=== PATIENT | male | born 1945 | race Caucasian/White ===

== ENCOUNTER 2017-02-11 16:21 | Inpatient (IN) | payer MEDICARE, OTHER ==
--- NOTE | ~2017-02-11 | HP ---
Unit #: [id number] #: [id number] Patient: GINA BALDERAS [id number] [address] [address] [id number] I MR#: [id number] NAME: GINA BALDERAS ROOM: 330 Age: Sex: M Admission Date: 02/11/2017 : 1945 Attending Physician: Cookie Henning M.D. Primary Care Physician: Joel Herman Jr., M.D. HISTORY AND PHYSICAL CHIEF COMPLAINT Low sodium. HISTORY OF PRESENT ILLNESS Mr. Balderas is a 71-year-old male with a history of congestive heart failure, coronary artery disease and chronic alcohol abuse who presents for above. Patient tells me he has been having "diarrhea for three weeks. He is having one to two loose bowel movements daily that appear green in color. He denies any fever or chills. He denies any sick contacts. He denies any associated abdominal pain. He has not been eating and drinking well secondary to the diarrhea. Three or four days ago he developed the abrupt onset of nausea. He has been having episodes of emesis in the morning, every morning that are nonbloody. His home health nurse came to see him and did some blood work. He was told his sodium was low and to go to the ER. The patient denies any melena or hematochezia. Sodium level was reportedly 124 per records I have available. INR was also elevated at 5.3. Patient is being admitted for further workup. PAST MEDICAL HISTORY 1. Atrial fibrillation. I believe permanent rate controlled and on anticoagulation. I will note; however, notes from the home health nurse indicate perhaps he is not taking his diltiazem and Coreg. ADDENDUM PAST MEDICAL HISTORY 1. Coronary artery disease, status post stenting in [facility] in 2009. 2. Atrial fibrillation, permanent rate controlled maintained on anticoagulation. 3. Diabetes mellitus type 2, noninsulin requiring. 4. Diabetic peripheral neuropathy. 5. Tobaccoism. 6. Chronic alcohol abuse. 7. Gout. 8. Chronic systolic congestive heart failure with ejection fraction of 40% to 45% per echocardiogram in 01/2016. 9. Osteoporosis. 10. Hypertension. PAST SURGICAL HISTORY Includes partial right second toe amputation, left hip replacement and cardiac stent placement in 2009. Unit #: [id number] #: [id number] Patient: GINA BALDERAS ALLERGIES Tramadol, which causes itching. HOME MEDICATIONS To the best of my knowledge include Seroquel 300 mg at bedtime; Allopurinol 100 mg daily; lisinopril/HCTZ 20/12.5 one twice daily; metformin 1,000 mg b.i.d.; metoprolol tartrate 25 mg b.i.d.; Lasix 40 mg daily; omeprazole 20 mg daily. Interestingly that I will note Coumadin is not listed as a home med. FAMILY HISTORY Significant for coronary artery disease in patient's mother and her family. SOCIAL HISTORY The patient was just discharged from rehab about a month ago after falling on his left hip. He was treated at [place]. He reportedly had AFib with RVR at that time. No new hip fracture. He is now residing with his fi-srndajnp-lg-law. He continues to drink two 32 ounce beers daily. Continues to smoke about 1/2 pack of cigarettes per day. He smoked since he was a teenage, making for at least a 50 pack year history of smoking most likely. REVIEW OF SYSTEMS Denies any recent weight change. Has had some falls at home but has not had any subsequent injury. He denies any fever or chills. He denies any shortness of breath. He denies any chest pain or palpitations. He denies any sore throat. He denies any abdominal pain, constipation, melena, hematochezia. Denies any postprandial pain. He denies any hematuria and dysuria. He does endorse some urinary hesitancy. He does have chronic thickening of the lower extremities. He does feel significantly weak but denies any dizziness. No suicidal or homicidal ideation. Otherwise ten point review of systems is as per HPI. PHYSICAL EXAMINATION VITAL SIGNS: Temperature 98.3, blood pressure 150/83, pulse rate 88, respiratory rate 22, oxygen saturation is 94% on room air. GENERAL: The patient is awake, alert, and oriented x3 but is only a vague historian, easily distracted. HEENT: Pupils equal, round, reactive to light bilaterally. Anicteric sclera. No conjunctival pallor. Oropharynx - there is not any dry mucous membranes, erythema or exudate. NECK: Supple. No lymphadenopathy and no thyromegaly. No JVD. HEART: Irregularly irregular and occasionally tachycardic without murmur, rub or gallop. LUNGS: Significantly diminished bilaterally without wheezes, rhonchi or crackles. ABDOMEN: Soft, nontender, nondistended. Positive bowel sounds. No appreciable hepatosplenomegaly. EXTREMITIES: No cyanosis or clubbing and trace to 1+ lower extremity edema. Pedal pulse is 2/4. SKIN: Warm. It is moist. There is erythema and significant thickening desquamation of the lower extremities secondary to poor hygiene. MUSCULOSKELETAL: No significant joint erythema noted; however, there is significant formation of hammertoes on the feet bilaterally. PSYCHIATRIC: Alert and oriented x3. No suicidal or homicidal ideations. Unit #: [id number] #: [id number] Patient: GINA BALDERAS DIAGNOSTIC STUDIES LABORATORY STUDIES: Blood work done in the emergency department reveals a white blood cell count of 7.4, hemoglobin 14.1, platelet count of 254,000. Sodium is 125, potassium 4.1, chloride 90, bicarb 26, BUN 9, creatinine 0.8, glucose 79. Alcohol level is mildly elevated at 17. INR is found to be elevated at 6.4. CARDIOLOGY STUDIES: EKG is currently pending. ASSESSMENT 1. Hyponatremia likely hypovolemic in origin. 2. Nausea and vomiting, question primary versus secondary to #1. 3. Atrial fibrillation, chronic with variable rate control. 4. Supratherapeutic INR. 5. Loose stool with questionable infection. 6. Chronic alcohol abuse. 7. Chronic systolic congestive heart failure with ejection fraction of 40% per echocardiogram in 01/2016. 8. Coronary artery disease, status post stenting. 9. Hypertension. 10. Gout. 11. History of cocaine abuse. 12. Physical deconditioning. PLAN 1. Will admit patient to inpatient status. 2. Will continue him on normal saline at 75 mL an hour. I am going to hold his Lasix and check sodium level in the morning. I will also check a TSH for completeness and I will also discontinue his HCTZ. If sodium is not improving will do further workup for SIADH and perform chest x-ray. 3. Zofran for nausea and vomiting for now. 4. Continue metoprolol for rate control of AFib. Will hold Coumadin for now and recheck INR in the morning. Will initiate further medications for rate control if necessary. 5. Add CIWA protocol with Ativan only given high risk for alcohol withdrawal. 6. Continue other home medications for CHF, coronary artery disease, hypertension, and gout. As noted above, I will discontinue HCTZ. 7. I will check a urine drug screen given history of cocaine abuse. 8. PPI therapy. 9. PT and OT to eval and treat. 10. No need for DVT prophylaxis given supratherapeutic Coumadin. JOB #: [id number] Dictated by Cookie Henning M.D. LOKESH/felix TD: 02/12/2017 05:01 JOB #: [id number] Unit #: [id number] #: [id number] Patient: GINA BALDERAS HISTORY AND PHYSICAL Page 1 of 1 X Cookie Henning MD X HISTORY AND PHYSICAL
--- NOTE | ~2017-02-11 | EKG ---
PATIENT: GINA LOERA UNIT #: [id number] Ventricular Rate: 114 BPM Atrial Rate: 115 BPM QRS Duration: 76 ms Q-T Interval: 338 ms QTC Calculation(Bezet): 465 ms Calculated R [place]: -15 degrees Calculated T [place]: 65 degrees Diagnosis Line: Atrial fibrillation with rapid ventricular Diagnosis Line: response with premature ventricular or aberrantly Diagnosis Line: conducted complexes Diagnosis Line: Low voltage QRS Diagnosis Line: Nonspecific ST and T wave abnormality , probably Diagnosis Line: digitalis effect Diagnosis Line: Abnormal ECG Diagnosis Line: When compared with ECG of 12-JAN-2016 06:49, Diagnosis Line: Atrial fibrillation has replaced Sinus rhythm Diagnosis Line: Vent. rate has increased BY 48 BPM Diagnosis Line: Nonspecific T wave abnormality no longer evident Diagnosis Line: in Inferior leads Diagnosis Line: Confirmed by BRIAN GREGORIO MD ([id number]) on 02/12/2017 Diagnosis Line: 6:42:56 PM INTERPRETING MD: JG SHERWOOD
--- NOTE | ~2017-02-11 | DS ---
Unit #: [id number] #: [id number] Patient: GINA BALDERAS [id number] [address] [address] [id number] I MR#: [id number] NAME: GINA BALDERAS ROOM: 229 Age: 71 Sex: M Admission Date: 02/11/2017 : 1945 Discharge Date: 02/13/2017 Attending Physician: Cookie Henning M.D. Primary Care Physician: Joel Herman Jr., M.D. DISCHARGE SUMMARY PRINCIPAL DIAGNOSES 1. Hyponatremia and combination of hypovolemia with poor (1) intake. 2. Nausea and vomiting secondary to hyponatremia, now resolved. 3. Supratherapeutic International Normalized Ratio, now resolved. Discharge International Normalized Ratio 2.5. 4. Chronic alcohol abuse without evidence of withdrawal. 5. Hypomagnesemia. 6. Permanent atrial fibrillation, rate controlled and maintained on anticoagulation. 7. Chronic systolic congestive heart failure with ejection fraction of 10%. No acute exacerbation. 8. Diabetes mellitus type 2, non-insulin requiring, with hemoglobin A1C of 5.8. 9. Hypertension. 10. Coronary artery disease. 11. Gout. 12. Mild deconditioning. 13. Mild protein malnutrition. CONSULTANTS None. PROCEDURES None. CLINICAL HISTORY AND HOSPITAL COURSE Mr. Balderas is a nice 71-year-old male who presented to the emergency department after found to be hyponatremic as an outpatient. At the same time he was also found to have a supratherapeutic INR. Please refer to H and P for further details. The patient was subsequently admitted. Patient appeared significantly dehydrated upon presentation. Diuretics were held, and he was placed on IV fluids. Sodium did increase from a presenting level of 125 to 127. Clinically, he appeared euvolemic at this time, and given his history of alcohol abuse, IV fluids were discontinued and he was encouraged to follow a regular diet. Today his sodium level is 131. Again, as noted above, I suspect his hyponatremia was multifactorial and have encourage him to refrain from any further alcohol use and encouraged his oral intake as an outpatient. In regard to the patient's supratherapeutic INR, his Coumadin was simply held. He had no signs or symptoms of bleeding. On day of discharge INR is Unit #: [id number] #: [id number] Patient: GINA BALDERAS now down to 2.5. I am going to reinitiate a lower dose of Coumadin, and INR will need to be followed up by home health on discharge. Patient was also found to have hypomagnesemia, which has been replaced IV, and I will provide him a few tablets to take as an outpatient. Patient's other chronic conditions remained stable. He was seen by physical therapy, who suggested home health versus subacute rehab. However, today he is ambulating 50 feet with a rolling walker and requires minimal assist and/or supervision only, and I think he would best benefit from home health. The patient will be discharged home today. DISCHARGE CONDITION Stable. DISCHARGE STATUS Discharge to home with home health. DISCHARGE MEDICATIONS 1. Magnesium oxide 400 mg p.o. b.i.d. for 5 days. 2. Coumadin 5 mg daily. 3. Metformin 1,000 mg 1/2 tablet p.o. b.i.d. 4. Lisinopril 20 mg daily. 5. Clobetasol 0.05% cream applied topically daily to lower extremities. 6. Seroquel 300 mg at bedtime. 7. Metoprolol tartrate 25 mg b.i.d. 8. Lasix 40 mg daily. 9. Allopurinol 100 mg daily. 10. Prilosec 20 mg daily. DISCHARGE INSTRUCTIONS Patient was instructed to follow a heart healthy, diabetic diet. He can increase his activity as tolerated, to refrain from any further alcohol use. FOLLOW-UP 1. Patient will follow up with [facility] next week. 2. He needs followup INR done on February 16, 2017 with goal INR of 2 to 3 and adjustments in Coumadin if necessary. Dictated by... Cookie Henning M.D. LOKESH/jeni TD: 02/16/2017 09:33 JOB #: [id number] Unit #: [id number] #: [id number] Patient: GINA BALDERAS DISCHARGE SUMMARY Page 1 of 1 X Cookie Henning MD X DISCHARGE SUMMARY
[~2017-02-11 16:21] MED LIST: ACETAMINOPHEN PO; ALLOPURINOL300 MG PO; ASPIRIN81 M1 PO; BACTRIM DS TABL1 TA1 PO; BENZONATATE PO; CERTAGEN PO; CLOBETASOL 0.0560 GM TOP; COLACE PO; COREG6.25 MG PO; FOLIC ACID PO; GLUCOPHAGE500 MG PO; HYDROXYZINE HCL10 MG PO; IBUPROFEN PO; IBUPROFEN100 MG PO; IBUPROFEN800 MG PO; LIPITOR PO; LISINOPRIL PO; LORTAB 5/500 TA1 TA2 PO; LORTAB 7.5-5001 TAB PO; MEDROL PO; METFORMIN HCL500 M1 PO; MYLANTA400 MG PO; NASAL SPRAY30 M3; NEURONTIN300 MG PO; PENICILLIN V P500 MG PO; PHENERGAN25 MG PO; PRILOSEC20 M1 PO; QUETIAPINE FUM200 MG PO; QUETIAPINE FUM300 MG PO; SEROQUEL PO; THIAMINE HCL100 MG PO; TRIAMCINOLONE A15 G3 EXT; TRIAMTERENE-HC1 EACH PO; VEETIDS 500500 M1 PO; ZANTAC PO; ZYLOPRIM PO; ZYRTEC10 M2 PO
[2017-02-11] MEDS ORDERED: ZYLOPRIM100 MG PO (16:36)
[2017-02-11] MEDS ORDERED: DILTIAZEM 24HR120 M1 PO (16:37)
[2017-02-11] MEDS ORDERED: ZESTORETIC 20-1 EAC2 PO (16:37)
[2017-02-11] MEDS ORDERED: COREG3.125 MG PO (16:37)
[2017-02-11] MEDS ORDERED: LASIX80 MG PO (16:38)
[2017-02-11] MEDS ORDERED: PRILOSEC10 M1 PO (16:38)
[2017-02-11 17:13] LABS: BASOPHIL% 0.6 % (0-2.5); EOSINOPHIL# 0.2 X10e3 (0-0.7); EOSINOPHIL% 2.5 % (0.0-7.0); HEMATOCRIT 42.5 % (38.0-50.0); HEMOGLOBIN 14.1 gm/dL (13.0-16.0); LYMPHOCYTE# 1.5 X10e3 (1.0-3.5); LYMPHOCYTE% 20.1 % (17.0-45.0); MEAN CELL VOLUME 86.8 FL (83-96); MEAN CORPUSCULAR HEMOGLOBIN 28.9 PG (28-34); MEAN CORPUSCULAR HGB CONC 33.3 g/dL (30-36); MEAN PLATELET VOLUME 7.5 FL (6.5-11.5); MONOCYTE# 0.5 X10e3 (0-1.0); MONOCYTE% 6.7 % (3.0-12.0); NEUTROPHIL# 5.2 X10e3 (1.5-7.1); NEUTROPHIL% 70.1 % (40-75); PLATELET COUNT 254 X10e3 (140-420); RED BLOOD COUNT 4.89 X10e (3.90-5.60); RED CELL DISTRIBUTION WIDTH 14.5 % (11.0-15.5); WHITE BLOOD COUNT 7.4 X10e3 (4.0-10.5)
[2017-02-11 17:15] LABS: DIFF IND NO
[2017-02-11 17:35] LABS: ALBUMIN SERUM 3.2 g/dL (3.5-5.0); BILIRUBIN, DIRECT 0.1 mg/dL (0.0-0.2); BILIRUBIN,INDIRECT 0.4 mg/dL (0.0-0.9); BILIRUBIN,TOTAL 0.5 mg/dL (0.2-2.0); BUN/CREATININE RATIO 11.25; CALCIUM SERUM 8.8 mg/dL (8.4-10.2); CREATININE SERUM 0.8 mg/dL (0.6-1.4); GLOM FILT RATE Estimated 91.2 mL/min (>60); POTASSIUM 4.1 mmol/L (3.5-5.1); PROTEIN TOTAL SERUM 7.1 g/dL (6.0-8.3)
[2017-02-11 17:49] LABS: PARTIAL THROMBOPLASTIN TIME 54.6 SECONDS (23.5-31.3); PROTHROMBIN TIME (PATIENT) 71.5 SECONDS (9.6-11.5)
[2017-02-11 17:55] LABS: INR 6.4
[2017-02-11 20:05] LABS: URINE SOURCE CLEAN CATCH
[2017-02-11 20:13] LABS: URINE APPEARANCE CLEAR; URINE BILIRUBIN NEG (NEG); URINE BLOOD NEG (NEG); URINE COLOR YELLOW; URINE GLUCOSE NEG (NEG); URINE KETONE NEG (NEG); URINE LEUKOCYTE ESTERASE NEG (NEG); URINE NITRATE NEG (NEG); URINE PROTEIN NEG (NEG); URINE SPECIFIC GRAVITY 1.007 (1.003-1.035); URINE UROBILINOGEN 0.2 MG/DL (NEG)
[2017-02-11 20:23] LABS: CULTURE INDICATED? NO
[2017-02-11 20:32] LABS: AMPHETAMINE NEG (NEG); BARBITURATES NEG (NEG); BENZODIAZEPINES NEG (NEG); COCAINE NEG (NEG); MARIJUANA NEG (NEG); OPIATES NEG (NEG); TRICYCLIC ANTIDEPRESSANTS POS (NEG); U METHADONE NEG (NEG)
[2017-02-12 05:25] LABS: HEMATOCRIT 40.6 % (38.0-50.0); HEMOGLOBIN 13.3 gm/dL (13.0-16.0); MEAN CELL VOLUME 87.9 FL (83-96); MEAN CORPUSCULAR HEMOGLOBIN 28.9 PG (28-34); MEAN CORPUSCULAR HGB CONC 32.8 g/dL (30-36); MEAN PLATELET VOLUME 8.2 FL (6.5-11.5); RED BLOOD COUNT 4.62 X10e (3.90-5.60); RED CELL DISTRIBUTION WIDTH 14.3 % (11.0-15.5); WHITE BLOOD COUNT 6.2 X10e3 (4.0-10.5)
[2017-02-12 05:37] LABS: PROTHROMBIN TIME (PATIENT) 61.3 SECONDS (9.6-11.5)
[2017-02-12 05:48] LABS: INR 5.5
[2017-02-12 06:26] LABS: BUN/CREATININE RATIO 12.85; CALCIUM SERUM 8.4 mg/dL (8.4-10.2); CREATININE SERUM 0.7 mg/dL (0.6-1.4); GLOM FILT RATE Estimated 96.3 mL/min (>60); MAGNESIUM 1.2 mg/dL (1.6-3.0); PHOSPHOROUS 2.7 mg/dL (2.5-4.6); POTASSIUM 4.3 mmol/L (3.5-5.1)
[2017-02-13 06:33] LABS: INR 2.5
[2017-02-13 06:34] LABS: PROTHROMBIN TIME (PATIENT) 26.9 SECONDS (9.6-11.5)
[2017-02-13 07:18] LABS: BUN/CREATININE RATIO 11.25; CALCIUM SERUM 8.8 mg/dL (8.4-10.2); CREATININE SERUM 0.8 mg/dL (0.6-1.4); GLOM FILT RATE Estimated 91.2 mL/min (>60); MAGNESIUM 1.4 mg/dL (1.6-3.0); POTASSIUM 3.9 mmol/L (3.5-5.1)
[2017-02-13] MEDS ORDERED: METOPROLOL TAR25 MG PO (13:21)
[2017-02-13] MEDS ORDERED: LISINOPRIL PO (13:21)
[2017-02-13] MEDS ORDERED: COUMADIN5 MG PO (13:23)
[2017-02-13] MEDS ORDERED: MAGNESIUM OXID200 MG PO (13:24)
== END 2017-02-13 19:50 | disposition home health service (06) | DRG 641 ==
LOC: CED 16:21 → C3A PCU 19:55 → CEDOF 19:55 → CED 20:10 → CEDOF 20:10 → C3A PCU 20:52 → CEDOF 20:52 → C2A 02-13 11:50
PROVIDERS: Emergency Medicine; Internal Medicine
DX: E87.1 Hypo-osmolality and hyponatremia (principal); E86.1 Hypovolemia; I48.2 Chronic atrial fibrillation; I11.0 Hypertensive heart disease with heart failure; I50.22 Chronic systolic (congestive) heart failure; E83.42 Hypomagnesemia; M10.9 Gout, unspecified; E44.1 Mild protein-calorie malnutrition; F10.10 Alcohol abuse, uncomplicated; I25.10 Atherosclerotic heart disease of native coronary artery without angina pectoris; Z95.5 Presence of coronary angioplasty implant and graft; F17.210 Nicotine dependence, cigarettes, uncomplicated; M81.0 Age-related osteoporosis without current pathological fracture; Z96.642 Presence of left artificial hip joint; Z88.8 Allergy status to other drugs, medicaments and biological substances; Z82.49 Family history of ischemic heart disease and other diseases of the circulatory system; Z79.84 Long term (current) use of oral hypoglycemic drugs; R11.2 Nausea with vomiting, unspecified
CPT/HCPCS: 36415; 80048; 80076; 80307; 81003; 82150; 82947; 83036; 83630; 83690; 83735; 84100; 84443; 85025; 85027; 85610; 85730; 87493; 93005; 94760; 96360; 97110; 97116; 97162; 97167; 97535; 99285; G0480; G8978-GP; G8979-GP; G8987-GO; G8988-GO; J1815; J3475

== ENCOUNTER 2017-04-01 10:19 | Inpatient (IN) | payer MEDICARE, OTHER ==
[~2017-04-01] VITALS: Ht 188 cm; Wt 92.4 kg
--- NOTE | ~2017-04-01 | EKG ---
PATIENT: GINA LOERA UNIT #: [id number] Ventricular Rate: 88 BPM Atrial Rate: 81 BPM QRS Duration: 72 ms Q-T Interval: 368 ms QTC Calculation(Bezet): 445 ms Calculated R [place]: 10 degrees Calculated T [place]: 33 degrees Diagnosis Line: Atrial fibrillation Diagnosis Line: Abnormal ECG Diagnosis Line: When compared with ECG of 11-FEB-2017 20:36, Diagnosis Line: No significant change was found Diagnosis Line: Confirmed by BRIAN GREGORIO MD ([id number]) on 04/08/2017 Diagnosis Line: 7:36:44 AM INTERPRETING MD: JG SHERWOOD
--- NOTE | ~2017-04-01 | A ---
[facility] Nutrition Therapy DATE: 04/03/17 Patient: GINA LOERA Physician: KANDIS Address: [address] [place] [address] Room/Bed: [address] [place] [address], Zip: [place] [address] Admit Date: 04/01/17 Date of : [birth year] Height: 6 2 Weight: 205 93.4 NUTRITIONAL ASSESSMENT: REASON: Consult re: diabetes diet education 71 y/o male admitted for fall/neck pain PMH: CHF, Afib, CAD, T2DM, ETOH abuse Current diet: Healthy heart + chocolate Ensure BID Assessment: Chart reviewed, events noted. Pt seen for consult re: diabetes diet education. Pt was seen yesterday 04/02 for consult re: poor po intake. Please see full assessment from 04/02. RD physician general internal medicine provided pt with brief written and verbal diabetes diet education today due to the pt being very lethargic. Of note, the patient's A1C was normal when last checked (2016) and his glucose has been well controlled since admission not on insulin. Intervention: 1. Diabetes diet education Recommendations: 1. RD provided DM diet education as stated above. 2. Will continue to follow to determine adequacy of PO intake. Respectfully, Misty Garcia, Baker Pie Ca Crowley RD, NITHIN Food and Nutritional Services [facility] cc: client file
--- NOTE | ~2017-04-01 | CT52 ---
[facility] A Service of [facility] & [facility] RADIOLOGY TEXT RESULTS PATIENT: GINA LOERA LOCATION: [facility] 576-01 : [birth year] UNIT #: [id number] AGE: [address]: Neo Gleason MD SEX: M ORDER DR: [id number] [facility]. [place], [place] [address] [id number] MR#: [id number] Acc #: [id number] NAME: GINA LOERA : 1945 SEX: M STUDY DATE/TIME: 04/01/2017 12:07 UNIT: [facility] ROOM: STUDY DESCRIPTION: CT Cervical Spine Wo Cont Attending Physician: Juan Garcia M.D. Ordering Physician: Juan Garcia M.D. Primary Care Physician: Joel Herman Jr., M.D. MEDICAL IMAGING REPORT This report is preliminary unless electronic signature is present EXAM CT cervical spine without contrast DATE 04/03/2017 HISTORY Weakness, onset of symptoms last night, 03/31/2017. Fell at home from his bed during the night. Posterior head and neck pain. COMPARISON CT cervical spine without contrast 01/11/2016. PROCEDURE 2 mm axial images through the cervical spine without contrast. Sagittal and coronal reformatted images were obtained. This CT exam was performed with one or more of the following radiation dose reduction techniques: Automatic exposure control, adjustment of mA and/or kV according to patient size, and iterative reconstruction. FINDINGS Craniocervical junction is intact. No acute cervical spine fracture or subluxation is seen. There is minimal 1-2 mm anterolisthesis of C4 upon C5 which is not thought to be significantly changed from the 01/11/2016 examination. Advanced facet arthropathy on the right at C2-3 with partial osseous fusion across the facets. Severe facet arthropathy on the right at C4-5 with severe right neural foraminal narrowing. Mild facet arthropathy on the left at C6-7. No high-grade canal stenosis is identified. Lung apices are clear. IMPRESSION 1. No acute cervical spine findings. No significant change from 01/11/2016. [facility] A Service of [facility] & [facility] RADIOLOGY TEXT RESULTS PATIENT: GINA LOERA LOCATION: [facility] 576-01 : [birth year] UNIT #: [id number] AGE: [address]: Neo Gleason MD SEX: M ORDER DR: 2. Severe right C4-5 neural foraminal narrowing secondary to advanced facet arthropathy, similar to prior exam. 3. 1-2 mm anterolisthesis C4 upon C5, unchanged, likely related to chronic facet arthropathy at that level. Dictated by... Ivania Wheatley M.D. THIS IS AN ELECTRONICALLY VERIFIED REPORT Ivania Wheatley M.D. at 04/03/2017 9:33 PM VLADIMIR/glendy TD: 04/01/2017 14:20 JOB #: [id number] MEDICAL IMAGING REPORT Page 1 of 1 COPY
--- NOTE | ~2017-04-01 | A ---
[facility] Nutrition Therapy DATE: 04/02/17 Patient: GINA LOERA Physician: KANDIS Address: [address] [place] [address] Room/Bed: [address] [place] [address], Zip: [place] [address] Admit Date: 04/01/17 Date of : [birth year] Height: 6 2 Weight: 203 92.2 NUTRITIONAL ASSESSMENT: REASON: Consult re: poor PO intake 71 y/o male admitted for fall/neck pain PMH: CHF, Afib, CAD, T2DM, ETOH abuse Anthropometrics: ht: 6'2" wt: 203# (92 kg) BMI 26 Labs: Na+ 129, Cl- 96, Alb 2.5, AST 93, Mg++ 1.4 Meds: Protonix, ativan, lovenox, seroquel I's & O's: 1640/2. BM unknown. Skin: psoriasis- generalized; redness- coccyx; excoriation- abd/groin. Edema: BLE- trace Diet: Healthy heart Assessment: Chart reviewed, events noted. Pt seen for consult re: poor PO intake. RD quality internship visited pt at bedside. Pt reports having a normal appetite, it has slightly decreased since his admission here. Pt ate 100% of his breakfast (tray at bedside). He reports that his weight normally fluctuates between 200-215#. Pt was agreeable to Ensure Enlive BID to ensure that his protein/calorie intake is adequate. RD will remain available. Dx: No nutrition diagnosis Intervention: 1. Ensure Enlive BID chocolate Monitoring, Evaluation and Goals: 1. Intake; consume >50% of meals and supplements 2. Weight; maintain healthy weight Recommendations: 1. Healthy heart diet + ensure enlive chocolate BID. 2. Encourage adequate intake. [facility] Nutrition Therapy DATE: 04/02/17 Patient: GINA LOERA Physician: KANDIS Address: [address] [place] [address] Room/Bed: [address] [place] [address], Zip: [place] [address] Admit Date: 04/01/17 Date of : [birth year] Height: 6 2 Weight: [address] will f/u per protocol as pt is at mild nutritional risk. Respectfully, Emmanuel Triplett Intern Ca Crowley RD, LD Food and Nutrition[facility] Services [facility] cc: client file
--- NOTE | ~2017-04-01 | CR123 ---
[facility] A Service of [facility] & [facility] RADIOLOGY TEXT RESULTS PATIENT: GINA LOERA LOCATION: [facility] [place] [facility] 576-01 : [birth year] UNIT #: [id number] AGE: [address]: Neo Gleason MD SEX: M ORDER DR: [id number] [facility] [address]. [place], [place] [address] [id number] I MR#: [id number] Acc #: [id number] NAME: GINA LOERA : 1945 SEX: M STUDY DATE/TIME: 04/02/2017 12:59 UNIT: [facility] [place] [facility] ROOM: 6 STUDY DESCRIPTION: CR Foot 2 Views Lt Attending Physician: Neo Gleason M.D. Ordering Physician: Neo Gleason M.D. Primary Care Physician: Joel Herman Jr., M.D. MEDICAL IMAGING REPORT This report is preliminary unless electronic signature is present EXAM Left foot 3 views 04/02/2017 INDICATIONS Osteomyelitis and cellulitis in a 71-year-old male. Great toe open wound. Symptoms 6 months. TECHNIQUE 3 views of the left foot COMPARISON 01/11/2016 FINDINGS The bones are osteoporotic. Advanced degenerative changes are present in the midfoot and hindfoot. Redemonstration of partial collapse of the talocalcaneal joint and tibiotalar joint. 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 There is metatarsus varus hallux valgus deformity of the first digit and similar findings involve the second and third digits at the MTP joints. No acute fracture. There are atherosclerotic changes. There is a soft tissue ulcer involving the great toe along its medial aspect adjacent to the distal phalanx. No retained opaque foreign body. There is an equivocal area of lucency involving the distal tuft 1st digit on the frontal projection not clearly demonstrated on the orthogonal views but a tiny erosive focus is not fully excluded. Findings could potentially reflect very early changes of osteomyelitis in the appropriate clinical context. This could be better assessed with MRI or three-phase bone scan. There are mixed lytic and sclerotic changes in the midfoot and hindfoot similar to the prior study. STS. [facility] A Service of [facility] & [facility] RADIOLOGY TEXT RESULTS PATIENT: GINA LOERA LOCATION: [facility] 576-01 : [birth year] UNIT #: [id number] AGE: [address]: Neo Gleason MD SEX: M ORDER DR: IMPRESSION 1. Osteoporosis with a soft tissue ulcer adjacent to the distal phalanx first digit. Equivocal small focus of early erosive change which could reflect early changes of osteomyelitis. Suggest correlation with three-phase bone scan or MRI. 2. No acute fracture. Extensive chronic degenerative change throughout the foot. 3. Probable sequela of underlying diabetes. STAT * RESULT Dictated by... Mian Serrano M.D. THIS IS AN ELECTRONICALLY VERIFIED REPORT Mian Serrano M.D. at 04/02/2017 5:12 PM DANIEL/selwyn TD: 04/02/2017 14:21 JOB #: [id number] MEDICAL IMAGING REPORT Page 1 of 1 COPY
--- NOTE | ~2017-04-01 | TH ---
Unit #: [id number] #: [id number] Patient: GINA LOERA [id number] [address] [address] [id number] I MR#: [id number] NAME: GINA LOERA : 1945 SEX: M STUDY DATE/TIME: 04/06/2017 UNIT: [facility] ROOM: 576 STUDY DESCRIPTION: Lexiscan stress test Attending Physician: Ena Thomas M.D. Primary Care Physician: Joel Herman Jr., M.D. CARDIOLOGY REPORT PROCEDURE PERFORMED Lexiscan Cardiolite stress test - Nuclear portion. PROCEDURE Using technetium 99m-labeled Cardiolite, rest and stress SPECT images were obtained. Multiple SPECT images were obtained in various views, including horizontal and vertical long axis and short axis views of the left ventricle. Images were obtained by gated SPECT method. The patient was administered 12 mCi of Cardiolite at rest. The patient was administered 34.7 mCi of Cardiolite after Lexiscan infusion was completed. On the stress images, there is a large area of severely decreased tracer uptake activity involving the inferior wall. The rest images show a smaller area of moderately decreased tracer uptake activity inferiorly. Comparing the rest and stress images, there is suspicion for a large area of stress-induced ischemia involving the inferior wall of the left ventricle. The left ventricular ejection fraction is calculated to be 37%. There is severe hypokinesis involving the inferior wall. The left ventricular cavity is moderately dilated at rest and post stress. CONCLUSION 1. Suspicion for a large area of stress-induced ischemia involving the inferior wall of the left ventricle. 2. The left ventricular ejection fraction is calculated to be 37%. 3. There is severe hypokinesis involving the inferior wall. 4. The left ventricular cavity is moderately dilated both at rest and post stress. 5. Suspicion for severe ischemic cardiomyopathy with significant ischemia involving the inferior wall of the left ventricle suspicious for RCA lesion. Dictated by.Stephanie Grissom TD: 04/06/2017 15:54 JOB #: [id number] Unit #: [id number] #: [id number] Patient: GINA LOERA CARDIOLOGY REPORT Page 1 of 1 X Monica Hunt MD <ELECTRONICALLY SIGNED> 05/28/17 1524 CARDIOLOGY REPORT
--- NOTE | ~2017-04-01 | CO ---
Unit #: [id number] #: [id number] Patient: GINA LOERA [id number] [address] [address] [id number] I MR#: [id number] NAME: GINA LOERA ROOM: 576 Age: 71 Sex: M Admission Date: 04/01/2017 : 1945 Attending Physician: Neo Gleason M.D. Primary Care Physician: Joel Herman Jr., M.D. Consultation Date: 04/04/2017 CONSULTATION REPORT CHIEF COMPLAINT Left foot wound. HISTORY OF PRESENT ILLNESS The patient is a 71-year-old male with history of alcoholism, was noted to have a left foot wound on admission. Orthopedic consultation is therefore requested. PAST MEDICAL HISTORY 1. Alcoholism. 2. Coronary artery disease. 3. Diabetes. 4. Diabetic neuropathy. 5. Gout. 6. Congestive heart failure. 7. Hypertension. 8. Osteoporosis. PAST SURGICAL HISTORY 1. Right second toe amputation. 2. Cardiac stent. 3. Left total hip arthroplasty. HOME MEDICATIONS 1. Coumadin. 2. Lopressor. 3. Prilosec. 4. Seroquel. 5. Gabapentin. 6. Glucophage. 7. Hydroxyzine. 8. Allopurinol. 9. Zestril. 10. Triamcinolone. 11. Tramadol. SOCIAL HISTORY The patient lives with his granddaughter. He drinks six beers a day. He is a one pack per day smoker. PHYSICAL EXAMINATION GENERAL: An elderly male who is alert, oriented, and cooperative. VITAL SIGNS: Temperature 97.9, blood pressure 119/71, and pulse 98. EXTREMITIES: Evaluation of the left foot shows severe hallux valgus with fusion of all of his metatarsophalangeal joints. He has a distal Unit #: [id number] #: [id number] Patient: GINA LOERA phalangeal tip ulcer which is draining purulence. There was exposed distal phalanx in the wound. The patient also has severe deformities with spontaneous fusions of all his lesser toes. No ulcerations are noted on the lesser toes or on the plantar foot. There is no ulceration of the heel. Dorsalis pedis pulse is surprisingly palpable. Sensation is decreased to light touch. Motor exam is grossly intact. DIAGNOSTIC STUDIES LABORATORY: Shows hemoglobin 11.2, hematocrit 33.4, white blood cell count 6.6. Chem-7 is normal with the exception of a sodium of 130, glucose is 98. INR is 1.1. IMAGING: AP, lateral, and oblique views of the left foot show a spontaneous fusion of all metatarsophalangeal joints with osteolysis of the hallux distal phalanx consistent with osteomyelitis. The patient has (1) second and third toes and has a varus deformity with hammering of the fourth toe. Small vessel calcification is noted. He has spontaneous fusion of the naviculocuneiform joints with narrowing of the talonavicular joint and significant osteopenia. This has the appearance of either rheumatoid arthritis or ankylosing spondylitis. IMPRESSION Left hallux distal phalangeal osteomyelitis. PLAN 1. Await medical clearance for surgery. The patient will require operative intervention. 2. Once he is cleared for surgery, I would recommend partial amputation of the hallux through the level of the interphalangeal joint. This procedure was described along the risks of failure to heal, bleeding, infection, nerve damage, need for further surgery in the future to include higher level amputation. The patient understands and will make plans for surgery once he is medically cleared. Dictated by... Stephanie Murphy/desire TD: 04/04/2017 14:51 JOB #: [id number] CONSULTATION REPORT Page 1 of 1 X Raul Barry MD X CONSULTATION REPORT
--- NOTE | ~2017-04-01 | CT71 ---
[facility] A Service of [facility] RADIOLOGY TEXT RESULTS PATIENT: GINA LOERA LOCATION: C5 576-01 : [birth year] UNIT #: [id number] AGE: [address]: Neo Gleason MD SEX: M ORDER DR: [id number] [facility] [address] [place], [place] [address] [id number] E MR#: [id number] Acc #: [id number] NAME: GINA LOERA : 1945 SEX: M STUDY DATE/TIME: 04/01/2017 12:07 UNIT: [facility] ROOM: STUDY DESCRIPTION: CT Head Wo Contrast Attending Physician: Juan Garcia M.D. Ordering Physician: Juan Garcia M.D. Primary Care Physician: Joel Herman Jr., M.D. MEDICAL IMAGING REPORT This report is preliminary unless electronic signature is present EXAM Noncontrast CT head 04/01/2017 HISTORY Fell last night, 03/31/2017, with neck pain and posterior head pain. Previous myocardial infarction. Hypertension. Diabetes. History of cardiac arrhythmia. COMPARISON Noncontrast CT head 01/11/2016. FINDINGS This CT examination was performed with one or more of the following radiation dose reduction techniques: automatic exposure control, adjustment of mA and/or kV according to patient size, and iterative reconstruction. Bilateral intracranial carotid arteries and left vertebral artery calcifications are noted. No acute intracranial hemorrhage, mass lesion, mass effect or midline shift is seen. There is mild parenchymal atrophy with compensatory prominence of the ventricles and extraaxial spaces, similar to the previous exam. Marin matter - white matter junction distinction appears preserved without convincing CT evidence of acute or evolving infarct. There is hosp-gu-kxdyfbve left maxillary sinus mucosal thickening. No acute calvarial abnormalities are identified. Mastoid air cells are clear. IMPRESSION 1. No acute intracranial findings. 2. Rndu-dh-itocqpbj left maxillary sinus mucosal thickening. 3. Mild generalized atrophy. [facility] A Service of [facility] RADIOLOGY TEXT RESULTS PATIENT: GINA LOERA LOCATION: [facility] 576-01 : [birth year] UNIT #: [id number] AGE: [address]: Neo Gleason MD SEX: M ORDER DR: Dictated by... Ivania Wheatley M.D. THIS IS AN ELECTRONICALLY VERIFIED REPORT Ivania Wheatley M.D. at 04/03/2017 9:33 PM VLADIMIR/lachelle TD: 04/01/2017 14:03 JOB #: [id number] MEDICAL IMAGING REPORT Page 1 of 1 COPY
--- NOTE | ~2017-04-01 | HP ---
Unit #: [id number] #: [id number] Patient: GINA LOERA [id number] [address] [address] [id number] E MR#: [id number] NAME: GINA LOERA ROOM: Age: 71 Sex: M Admission Date: 04/01/2017 : 1945 Attending Physician: Juan Garcia M.D. Primary Care Physician: Joel Herman Jr., M.D. HISTORY AND PHYSICAL CHIEF COMPLAINT Fall. HISTORY OF PRESENT ILLNESS The patient is a 71-year-old male with a history of congestive heart failure, coronary artery disease, and chronic alcohol abuse, brought to the emergency room with recurrent falls. The patient stated that patient has had 15 falls in the last one month. The patient fell down last night from the bed. He continues to have back pain and was brought to the emergency room. The patient continues to drink six beers a day, and the last drink was three days ago. The patient was found to be in acute rhabdomyolysis with a CK of 4094 and an acute L1 compression fracture and is being admitted for the above reasons. He denies any fever, denies loss of consciousness, and denies nausea and vomiting. Positive for back pain. PAST MEDICAL HISTORY 1. Atrial fibrillation. 2. Coronary artery disease. 3. Diabetes mellitus type 2. 4. Peripheral neuropathy. 5. Chronic alcohol abuse. 6. Gout. 7. Chronic systolic congestive heart failure with EF of 40% to 45%. 8. Osteoporosis. 9. Hypertension. PAST SURGICAL HISTORY 1. Partial right second toe amputation. 2. Left hip replacement. 3. Cardiac stent placement in 2009. ALLERGIES Tramadol. HOME MEDICATIONS 1. Lopressor. 2. Coumadin. 3. Prilosec. 4. Seroquel. 5. Gabapentin. 6. Glucophage. 7. Hydroxyzine. 8. Allopurinol. 9. Zestril. Unit #: [id number] #: [id number] Patient: GINA LOERA 10. Triamcinolone. FAMILY HISTORY Coronary artery disease. SOCIAL HISTORY Patient lives with a granddaughter. He continues to drink six beers daily and continues to smoke a half a pack of cigarettes per day. Denies any illicit drug abuse. Patient is residing with his nc-dukxkgwi-sy-law. REVIEW OF SYSTEMS Positive for recurrent falls. Positive for back pain. Denies any fever or chills. Denies any chest pain. Denies any cough. Denies any nausea or vomiting. Other systems were reviewed and are negative. PHYSICAL EXAMINATION GENERAL: Patient is lying in bed not in acute distress. VITAL SIGNS: Temperature 99.1, pulse 95, respiratory rate 20, blood pressure 141/80, and saturating 97% on room air. HEENT: Head atraumatic, normocephalic. Pupils equal, round, and reactive to light and accommodation. Extraocular movements are intact. Dry mucous membranes. NECK: Supple. LUNGS: Decreased air entry at the bases. HEART: Regular rate and rhythm. ABDOMEN: Soft. Positive bowel sounds. EXTREMITIES: Patient has scabbed wounds from recurrent falls and erythema, tenderness, and desquamation of the lower extremities secondary to poor hygiene mainly on the left side compared to the right side, and it is warm to touch. NEUROLOGIC: Alert, awake, and oriented. DIAGNOSTIC STUDIES LABORATORY: Urinalysis shows trace leukocyte esterase, 1+ urobilinogens, and 2+ blood. Sodium 122, potassium 3.8, chloride 86, bicarb 26, glucose 101, BUN 20, creatinine 1.2, AST 160, and ALT 27. CK level is 4094. INR is 1.1. WBC 9.2, hemoglobin 12.3, hematocrit 35.7, and platelets 338,000. IMAGING: CT of the cervical spine shows no acute cervical spine finding and no significant change from January 11, 2016. CT of the head without contrast shows no acute intracranial findings, mild to moderate left maxillary sinus mucosal thickening, and mild generalized atrophy. Lumbar spine x-ray shows diminished bony mineralization. New wedge compression deformity involving the superior L1 vertebral body. Loss of height, approximately 20%, anteriorly relative to normal height T12. Exact chronicity in the interval from October 2016 unclear, but in the context of acute trauma, acute time course favored. Best further evaluated with MRI or CT. X-ray of the thoracic spine shows normal alignment. Thoracic vertebral bodies are normal in height. The thoracic intervertebral disc spaces are within normal limits. ASSESSMENT 1. Recurrent falls. 2. Rhabdomyolysis. 3. Hyponatremia. 4. Probable cellulitis. 5. L1 compression fracture. Unit #: [id number] #: [id number] Patient: GINA LOERA PLAN Admit patient to inpatient. Continue with IV fluids at 125 mL/hour for a liter. Check lactic acid, and if it is high, initiate the sepsis protocol. Wound care to lower extremity feet. Continue with empiric IV antibiotics with Unasyn. Check CBC and BMP in the morning. IR evaluation for kyphoplasty for the compression fracture, and OT/PT evaluation. Further recommendations will follow. Dictated by Stephanie Hayden TD: 04/01/2017 17:39 JOB #: [id number] HISTORY AND PHYSICAL Page 1 of 1 X ZONIA GUADALUPE MD X HISTORY AND PHYSICAL
--- NOTE | ~2017-04-01 | OR ---
Unit #: [id number] #: [id number] Patient: GINA LOERA [id number] [address] [place], [place] [address] [id number] I MR#: [id number] NAME: GINA LOERA ROOM: 576 Date of Procedure: 04/07/2017 Admission Date: 04/01/2017 Surgeon: Laney Barry M.D. : 1945 Attending Physician: Ena Thomas M.D. Primary Care Physician: Joel Herman Jr., M.D. OPERATIVE REPORT PREOPERATIVE DIAGNOSIS Left hallux distal phalangeal osteomyelitis. POSTOPERATIVE DIAGNOSIS Left hallux distal phalangeal osteomyelitis. PROCEDURE PERFORMED Left hallux amputation through metatarsophalangeal joint (91761). LOSS PREVENTION INVESTIGATOR Polio. ANESTHESIA General. INDICATIONS FOR SURGERY This 71-year-old male, diabetic neuropathy, presents with distal phalangeal osteomyelitis and open draining wound. He is therefore to undergo hallux amputation. DESCRIPTION OF PROCEDURE The patient was taken to the operating room and placed in supine position and general anesthetic was induced. The left lower extremity was identified as the correct operative extremity during the time-out procedure. The IV antibiotic protocol was not followed because he was on preoperative IV antibiotics. The left leg was then prepped and draped in the usual sterile fashion. The leg was exsanguinated with an Esmarch bandage, which was left wrapped around the ankle to act as a tourniquet. Dorsal and plantar fish-mouth incisions were made over the base of the proximal phalanx. Dissection was proceeded directly down to the bone. The bone was exposed subperiosteally. The microsagittal saw was then used to cut the proximal phalangeal base at the level of the metatarsophalangeal joint. A small portion of the prominent medial eminence was also removed. The toe was sent to Pathology. The wound was irrigated and closed in layers using 3-0 Vicryl and 3-0 nylon horizontal mattress sutures. Xeroform gauze, dressing, sponges, Webril, Ayn wrap, and postoperative shoe were placed. The patient was then transported to the recovery room in stable condition. ESTIMATED BLOOD LOSS Minimal. Unit #: [id number] #: [id number] Patient: GINA LOERA COMPLICATIONS None. SPECIMENS Left hallux. TOURNIQUET TIME 15 minutes. Dictated by.Stephanie Mejias/mihaela TD: 04/07/2017 08:55 JOB #: [id number] OPERATIVE REPORT Page 1 of 1 X Raul Barry MD X PROCEDURE OPERATIVE NOTE
--- NOTE | ~2017-04-01 | CR243 ---
[facility] A Service of [facility] & [facility] RADIOLOGY TEXT RESULTS PATIENT: GINA LOERA LOCATION: [facility] : [birth year] UNIT #: [id number] AGE: [address]: Juan Garcia MD SEX: M ORDER DR: [id number] [facility] [address] [place], [place] [address] [id number] MR#: [id number] Acc #: [id number] NAME: GINA LOERA : 1945 SEX: M STUDY DATE/TIME: 04/01/2017 11:31 UNIT: [facility] ROOM: STUDY DESCRIPTION: CR Thoracic Spine 3 Views Attending Physician: Juan Garcia M.D. Ordering Physician: Juan Garcia M.D. Primary Care Physician: Joel Herman Jr., M.D. MEDICAL IMAGING REPORT This report is preliminary unless electronic signature is present EXAM Thoracic spine series. HISTORY Trauma. Fell. Weakness. Back pain. Left foot pain. Type 2 diabetes. FINDINGS AP and cross-table lateral views of the thoracic spine are presented. The study is limited secondary to the cross-table lateral technique in association with generalized bony demineralization. Comparison to rib series dated 10/09/[address] examination dated 10/09/2016. The thoracic spine shows normal alignment. Thoracic vertebral bodies are normal in height. The thoracic intervertebral disc spaces are within normal limits. There is no evidence of thoracic spine traumatic fracture or malalignment. The visualized ribs appear intact. Central lung zones clear. Heart probably xiqfbj-wx-yfhdq limits of normal in size. Cervicothoracic junction poorly visualized on the swimmer's view. Patient scheduled for CT cervical spine. Please see cervicothoracic spine junction on that study. Compared to CT examination of lumbar spine, 10/09/2016, there is a new compression deformity of the L1 vertebral body. Poorly visualized overall on this examination, but probably on the order of about 20% loss of height anteriorly relative to normal T12 height. Chronicity relative to October 2016 is unclear, but in the context of acute trauma, an acute time course is favored. It is best further evaluated with MRI or CT. In addition there is mild anterior wedging of the L2 vertebral body, which also appears new compared to the previous CT in October. Again, in the context of acute trauma, this is favored to be acute in time course. The visualized bowel gas pattern is normal. Extensive atherosclerotic arterial calcifications. Dictated by... STS. [facility] A Service of [facility] RADIOLOGY TEXT RESULTS PATIENT: GINA LOERA [id number] [birth year] UNIT #: [id number] AGE: [address]: Juan Garcia MD SEX: M ORDER DR: Manfred Gonzalez M.D. THIS IS AN ELECTRONICALLY VERIFIED REPORT Manfred Gonzalez M.D. at 04/01/2017 6:04 PM Kayla TD: 04/01/2017 13:45 JOB #: [id number] MEDICAL IMAGING REPORT Page 1 of 1 COPY
--- NOTE | ~2017-04-01 | DS ---
Unit #: [id number] #: [id number] Patient: GINA LOERA [id number] [address] [address] [id number] I MR#: [id number] NAME: GINA LOERA ROOM: 576 Age: 71 Sex: M Admission Date: 04/01/2017 : 1945 Discharge Date: 04/08/2017 Attending Physician: Ena Thomas M.D. Primary Care Physician: Joel Herman Jr., M.D. DISCHARGE SUMMARY PRIMARY DIAGNOSIS Cellulitis of the left foot and osteomyelitis of the left hallux distal phalanges. SECONDARY DIAGNOSES 1. Permanent atrial fibrillation. 2. Coronary artery disease with history of coronary catheterization. 3. Anemia. 4. Hyponatremia. 5. Rhabdomyolysis. 6. Acute thoracic compression fracture. 7. Acute alcohol withdrawal. 8. Diminished ejection fraction of 40%-45%. 9. Chronic systolic heart failure. 10. Psoriasis. 11. Hypomagnesemia. 12. Gout. 13. Peripheral neuropathy. 14. Generalized weakness. HISTORY OF PRESENT ILLNESS Mr. Loera came to the hospital and was started on broad spectrum antibiotics with cefepime and vancomycin for his cellulitis. Consultation was obtained with Dr. Barry for suspicion of osteomyelitis based on exam and imaging. The patient underwent left hallux amputation through the metatarsophalangeal joint without complication. Cultures came back with MRSA which is sensitive to tetracycline and Bactrim. He is being switched to an additional seven days of Bactrim at discharge. The patient also had issues with acute alcohol withdrawal, which was able to be treated with a p.r.n. Ativan during the first few days of his hospitalization. His acute compression fracture was treated conservatively and he has been able to get up and ambulate with assistance without intervention on the compression fracture. DISCHARGE DISPOSITION Subacute rehab. DISCHARGE STATUS Stable. ACTIVITY With assistance only. Unit #: [id number] #: [id number] Patient: GINA LOERA DIET Diabetic 2000 mg sodium diet. FOLLOWUP 1. Follow up with Dr. Barry with orthopedic surgery in one to two weeks. 2. Follow up with primary care physician in four to six weeks. 3. Follow up with Dr. Damico with cardiology in 8-10 weeks. 4. He will need weekly INRs done to follow his Coumadin level. DISCHARGE MEDICATIONS 1. Triamcinolone 0.5% cream applied topically b.i.d. p.r.n. areas of itching. 2. Tylenol 650 mg p.o. daily q.6 h. p.r.n. mild pain or headache. 3. Clobetasol propionate cream 0.05% applied topically daily to all erythremic areas for an additional 7 days. Last day is to be on 04/16/2017. 4. Coumadin 5 mg p.o. daily. 5. Gabapentin 900 mg p.o. t.i.d. 6. Glucophage 1000 mg tablets, take 0.5 tablet b.i.d. 7. Seroquel 300 mg p.o. at nighttime. 8. Hydroxyzine 10 mg p.o. q.8 h. p.r.n. itching. 9. Metoprolol tartrate 25 mg p.o. b.i.d. 10. Colace 100 mg p.o. b.i.d. 11. Milk of Magnesia 30 ml p.o. daily p.r.n. constipation. 12. Urea 10% cream applied topically daily. 13. Lisinopril 20 mg p.o. daily. 14. Allopurinol 300 mg p.o. daily. 15. Multivitamin 1 tablet p.o. daily. 16. Aspirin 81 mg p.o. daily. 17. Percocet 5 mg 1-2 tablets p.o. q.4 h. p.r.n. moderate or severe pain. 18. Prilosec 20 mg p.o. daily. 19. Imdur ER 30 mg p.o. at nighttime. 20. Thiamine 100 mg p.o. daily. 21. Bactrim DS 1 tablet p.o. b.i.d. for 7 additional days. 22. Lasix 20 mg p.o. q.a.m. Dictated by... Neo Gleason M.D. BOOM/surya TD: 04/08/2017 10:41 JOB #: [id number] DISCHARGE SUMMARY Page 1 of 1 X Neo Gleason MD DISCHARGE SUMMARY
--- NOTE | ~2017-04-01 | CR181 ---
[facility] A Service of [facility] & [facility] RADIOLOGY TEXT RESULTS PATIENT: GINA LOERA LOCATION: [facility] : [birth year] UNIT #: [id number] AGE: [address]: Juan Garcia MD SEX: M ORDER DR: [id number] [facility] [address] [place], [place] [address] [id number] E MR#: [id number] Acc #: [id number] NAME: GINA LOERA : 1945 SEX: M STUDY DATE/TIME: 04/01/2017 11:31 UNIT: [facility] ROOM: STUDY DESCRIPTION: CR Lumbar Spine 2 or 3 Views Attending Physician: Juan Garcia M.D. Ordering Physician: Juan Garcia M.D. Primary Care Physician: Joel Herman Jr., M.D. MEDICAL IMAGING REPORT This report is preliminary unless electronic signature is present EXAM Lumbar spine, 04/01/2017. HISTORY Trauma. Low back pain, left foot pain, weakness today, fell, type 2 diabetes. FINDINGS AP and 2 lateral views of the lumbar spine are presented. Comparison to CT examination, 10/09/2016. Diminished bony mineralization. New wedge compression deformity involving the superior L1 vertebral body. Loss of height, approximately 20%, anteriorly relative to normal height T12. Exact chronicity in the interval from October 2016 unclear, but in the context of acute trauma, acute time course favored. Best further evaluated with MRI or CT. I see no posterior L1 cortex disruption or retropulsion to raise concern for spinal canal compromise on these images. Other vertebral body heights within normal limits. Mild narrowing L3-L4, L5-S1 intervertebral disc space. Multilevel endplate osteophyte formations. Hhwu-fb-qxbezaoi diffuse facet degenerative changes throughout the lumbar spine. Assessment limited due to bed clothing artifact overlying posterior elements on the lateral views. Visualized lower thoracic spine unremarkable. Patient status post left hip arthroplasty. Visualized component unremarkable. Visualized bowel gas pattern normal. Extensive atherosclerotic arterial calcifications. Dictated by... Manfred Gonzalez M.D. THIS IS AN ELECTRONICALLY VERIFIED REPORT Manfred Gonzalez M.D. at 04/01/2017 6:04 PM Kayla TD: 04/01/2017 13:50 [facility] A Service of [facility] & [facility] RADIOLOGY TEXT RESULTS PATIENT: GINA LOERA LOCATION: [facility] : [birth year] UNIT #: [id number] AGE: [address]: Juan Garcia MD SEX: M ORDER DR: JOB #: [id number] MEDICAL IMAGING REPORT Page 1 of 1 COPY
--- NOTE | ~2017-04-01 | ST ---
Unit #: [id number] #: [id number] Patient: GINA LOERA [id number] [address] [address] [id number] I MR#: [id number] NAME: GINA LOERA : 1945 SEX: M STUDY DATE/TIME: 04/05/2017 UNIT: [facility] ROOM: 576 STUDY DESCRIPTION: Attending Physician: Neo Gleason M.D. Primary Care Physician: Joel Herman Jr., M.D. CARDIOLOGY REPORT EXAM EKG portion of Lexiscan Cardiolite stress test. REASON FOR EXAMINATION Chest pain. FINDINGS Baseline EKG is atrial fibrillation with a rate of 81 beats per minute. PROCEDURE A total of 0.4 mg of Lexiscan was injected per protocol followed by Cardiolite. Patient's symptoms were abdominal cramping. There are no ST-T wave changes. Test was stopped due to protocol completion. IMPRESSION 1. There were no ST-T wave changes. 2. Abdominal cramping resolved in recovery. 3. No arrhythmias. 4. Please correlate with Cardiolite imaging. Dictated by... Alexus White A.P.R.N. for Brooks Dominguez M.D. AM/desire TD: 04/05/2017 10:59 JOB #: [id number] CARDIOLOGY REPORT Page 1 of 1 X Alexus White APRN CARDIOLOGY REPORT
--- NOTE | ~2017-04-01 | CO ---
Unit #: [id number] #: [id number] Patient: GINA LOERA [id number] [facility] [address] [facility]. [place], [place] [address] [id number] MR#: [id number] NAME: GINA LOERA ROOM: 576 Age: 71 Sex: M Admission Date: 04/01/2017 : 1945 Attending Physician: Ena Thomas M.D. Primary Care Physician: Joel Herman Jr., M.D. Consultation Date: 04/04/2017 CONSULTATION REPORT REASON FOR CONSULTATION Atrial fibrillation. HISTORY OF PRESENT ILLNESS This is a 71-year-old white male, known to our group with a recent admission to [facility] 02/11/2017 through 02/13/2017 for nausea, vomiting, hyponatremia, and hypovolemia. The patient has a history of coronary artery disease and underwent PCI and stent placement in LAD in 2009. 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 Ejection fraction was low at that time of 25% to 30%. Repeat 2D echocardiogram was completed in 01/12/2016 revealed an ejection fraction of 40% to 45%. There was mild LVH and mild mitral regurgitation. The patient is known to have permanent atrial fibrillation and was on Coumadin. He follows with [facility] and he states that they stopped his Coumadin because he no longer "needed it". Of note, he has had multiple falls recently and this may have been a contributing factor to anticoagulation being stopped. He is known to have hypertension; diabetes mellitus type 2; chronic congestive heart failure; history of alcohol, cocaine, and tobacco abuse. He continues to smoke cigarettes. He presented to the emergency department, status post multiple falls. He has had weakness and occasional dizziness, but no syncope. When he came to the emergency department, his main complaint was mid to lower back pain. He has had episodes of chest pain in the past. The pain is in the midsternal to left anterior chest. There is no radiation or associating symptoms. He does not have chest pain actively. He denies shortness of breath or palpitations. He states he has been taking his medications. He was admitted to the hospital for a fall. X-ray of the lumbar spine revealed an L1 compression fracture. He was noted to have left foot wound. X-ray was obtained and there was concern for osteomyelitis. Dr. Bajwa was consulted. Telemetry revealed atrial fibrillation, and Cardiology was consulted for further management. PAST MEDICAL HISTORY 1. Recent admission to [facility] on 02/11/2017 through 02/13/2017 for nausea, vomiting, hyponatremia, and hypovolemia. 2. Coronary artery disease with history of PCI and stent in the LAD in 2009 at [facility]. Nonobstructive disease in the right coronary artery. Left circumflex anomalous. Ejection fraction 25% to 30%. 3. 2D echocardiogram on 01/12/2016 revealed an ejection fraction of 40% to 45%. Mild LVH. Mild mitral regurgitation. Unit #: [id number] #: [id number] Patient: GINA LOERA 4. Permanent atrial fibrillation, previously on Coumadin. The patient states that this was stopped because he no longer needed it. 5. Chronic systolic congestive heart failure. 6. Hypertension. 7. Diabetes mellitus, type 2. 8. Psoriasis. 9. History of elevated LFTs. 10. Gout. 11. Noncompliance. 12. History of alcohol abuse. 13. History of cocaine abuse. 14. Active tobacco abuse. PAST SURGICAL HISTORY 1. Cardiac catheterization, PCI, and stent. 2. Left hip replacement. 3. Right second toe surgery. 4. Partial right second toe amputation. HOME MEDICATIONS Metformin 1000 mg p.o. b.i.d., hydroxyzine 10 mg p.o. q.8 hours p.r.n. for itching, allopurinol 300 mg p.o. daily, lisinopril 20 mg p.o. daily, metoprolol tartrate 25 mg p.o. b.i.d., the patient states that he is no longer taking Coumadin, Prilosec 20 mg p.o. daily, Seroquel 300 mg p.o. at bedtime, gabapentin 900 mg p.o. t.i.d., triamterene 0.5% topical b.i.d. ALLERGIES Tramadol. SOCIAL HISTORY The patient continues to actively smoke cigarettes. He smokes up to a pack of cigarettes per day. There are no reports of illicit drug use. He does have a history of cocaine. He denies alcohol, but does have a history of alcohol abuse. FAMILY HISTORY Significant for cancer. REVIEW OF SYSTEMS Please see details in HPI. PHYSICAL EXAMINATION VITAL SIGNS: Temperature 97.8, pulse 91, blood pressure 94/68. CONSTITUTIONAL: This is a 71-year-old white male, in no acute distress. SKIN: Warm and dry. NECK: Supple. No jugular vein distention. No hepatojugular reflux. Normal carotid upstrokes. No carotid bruits auscultated. HEART: S1 and S2. Irregularly irregular. No murmurs, rubs, or gallops. LUNGS: Bilateral breath sounds are diminished in the bases. Respirations are even and nonlabored. No rales, rhonchi, or wheezes. ABDOMEN: Soft, nontender, and nondistended. Positive bowel sounds auscultated x4 quadrants. No ascites noted. EXTREMITIES: Bilateral lower extremities have no pretibial pitting edema. DP and PT pulses are 2+. Capillary refill is less than 2 seconds. DIAGNOSTIC STUDIES LABORATORY RESULTS: White blood cell count 6.6, hemoglobin 11.2, hematocrit 33.4, and platelets 346. Sodium 130, potassium 3.8, chloride Unit #: [id number] #: [id number] Patient: GINA LOERA 94, CO2 of 28, BUN 9, creatinine 0.8, glucose 98. Magnesium 1.8 and previously 1.2, albumin 2.6, ALT 23, AST 64, alkaline phos 68. Troponin 0.04. TSH 2.08. CK 4094 and 1260. IMAGING STUDIES: X-ray of the thoracic spine reveals new compression deformity of the L1 vertebral body. Poorly visualized overall in this exam, but probably on the order of about 20% loss of height anteriorly relative to normal T12 height. Mild anterior wedging of the L2 vertebral body, which also appears new compared to previous study in 10/2016. Extensive atherosclerotic arterial calcifications. X-ray of the lumbar spine reveals new wedge compression deformity involving the superior L1 vertebral body. CT of the head without contrast reveals no acute abnormalities. Mild to moderate left maxillary sinus mucosal thickening. Mild generalized atrophy. CT of the cervical spine without contrast reveals no acute cervical findings. Severe right C4-5 neural foraminal narrowing secondary to advanced facet arthropathy, 1 to 2 mm of C4 upon C5 unchanged and likely chronic. X-ray of the left foot reveals osteoporosis of the soft tissue ulcer adjacent to the distal phalanx of first digit. Could reflect early changes of osteomyelitis. No acute fracture. Extensive chronic degenerative changes throughout the foot. CARDIOVASCULAR STUDIES: EKG reveals atrial fibrillation with nonspecific ST-T wave changes. IMPRESSION 1. Status post multiple falls. 2. L1 compression fracture. 3. Left foot pain, rule out osteomyelitis. 4. Permanent atrial fibrillation, currently with controlled ventricular rate. Coumadin stop by [facility], possibly secondary to falls. 5. Coronary artery disease, history of percutaneous coronary intervention and stent in the left anterior descending in 2009, now with some recurrent chest pain. 6. Borderline hypotension. 7. History of hypertension. 8. Diabetes mellitus, type 2. 9. Chronic systolic congestive heart failure with the last ejection fraction of 40% to 45% in 01/2016. 10. Alcohol abuse. 11. History of cocaine abuse. 12. Active tobacco abuse. PLAN 1. The patient presented to the hospital for multiple falls. He was admitted and Cardiology was consulted for atrial fibrillation. 2. The patient's heart rate is currently controlled on beta-shari. 3. TSH level is normal. 4. Electrolytes are stable. 5. The patient's Coumadin was stopped as an outpatient, which could be related to his multiple falls. We will need to discuss anticoagulation prior to discharge. Unit #: [id number] #: [id number] Patient: GINA LOERA 6. The patient reports recent episodes of chest pain. We will order cardiac enzymes and plan for stress test tomorrow. He has been advised to be compliant to refrain from alcohol and tobacco. Dictated by... Caryl Ureña APRN for Stephanie Worthy/mihaela TD: 04/06/2017 02:54 JOB #: [id number] CONSULTATION REPORT Page 1 of 1 X X CONSULTATION REPORT
[~2017-04-01 10:19] MED LIST changes: +COREG3.125 MG PO; +COUMADIN5 MG PO; +DILTIAZEM 24HR120 M1 PO; +LASIX80 MG PO; +MAGNESIUM OXID200 MG PO; +METOPROLOL TAR25 MG PO; +PRILOSEC10 M1 PO; +ZESTORETIC 20-1 EAC2 PO; +ZYLOPRIM100 MG PO
[2017-04-01 11:36] LABS: BASOPHIL% 0.4 % (0-2.5); EOSINOPHIL% 0.4 % (0.0-7.0); HEMATOCRIT 35.7 % (38.0-50.0); HEMOGLOBIN 12.3 gm/dL (13.0-16.0); LYMPHOCYTE# 0.9 X10e3 (1.0-3.5); LYMPHOCYTE% 10.3 % (17.0-45.0); MEAN CELL VOLUME 86.7 FL (83-96); MEAN CORPUSCULAR HEMOGLOBIN 29.8 PG (28-34); MEAN CORPUSCULAR HGB CONC 34.4 g/dL (30-36); MEAN PLATELET VOLUME 7.8 FL (6.5-11.5); MONOCYTE# 0.6 X10e3 (0-1.0); MONOCYTE% 6.7 % (3.0-12.0); NEUTROPHIL# 7.5 X10e3 (1.5-7.1); NEUTROPHIL% 82.2 % (40-75); PLATELET COUNT 338 X10e3 (140-420); RED BLOOD COUNT 4.12 X10e (3.90-5.60); RED CELL DISTRIBUTION WIDTH 15.4 % (11.0-15.5); WHITE BLOOD COUNT 9.2 X10e3 (4.0-10.5)
[2017-04-01 11:48] LABS: DIFF IND NO
[2017-04-01 11:53] LABS: INR 1.1
[2017-04-01 12:05] LABS: BILIRUBIN, DIRECT 0.3 mg/dL (0.0-0.2); BILIRUBIN,TOTAL 1.3 mg/dL (0.2-2.0); BUN/CREATININE RATIO 16.66; CALCIUM SERUM 8.7 mg/dL (8.4-10.2); CREATININE SERUM 1.2 mg/dL (0.6-1.4); GLOM FILT RATE Estimated 61.3 mL/min (>60); POTASSIUM 3.8 mmol/L (3.5-5.1); PROTEIN TOTAL SERUM 7.2 g/dL (6.0-8.3)
[2017-04-01 12:08] LABS: PROTHROMBIN TIME (PATIENT) 12.3 SECONDS (10.0-11.7)
[2017-04-01] MEDS ORDERED: ALLOPURINOL300 MG PO (12:10)
[2017-04-01] MEDS ORDERED: LISINOPRIL PO (12:10)
[2017-04-01] MEDS ORDERED: METFORMIN PO (12:10)
[2017-04-01] MEDS ORDERED: PATIENT'S PHARMACY (12:10)
[2017-04-01] MEDS ORDERED: LOPRESSOR PO (12:10)
[2017-04-01] MEDS ORDERED: HYDROXYZINE HCL10 MG PO (12:10)
[2017-04-01] MEDS ORDERED: SEROQUEL PO (12:11)
[2017-04-01] MEDS ORDERED: PRILOSEC PO (12:11)
[2017-04-01] MEDS ORDERED: COUMADIN PO (12:11)
[2017-04-01] MEDS ORDERED: GABAPENTIN300 MG PO (12:11)
[2017-04-01] MEDS ORDERED: TRIAMCINOLONE A15 G3 TOP (12:12)
[2017-04-01 14:24] LABS: URINE SOURCE CLEAN CATCH
[2017-04-01 14:31] LABS: URINE APPEARANCE CLEAR; URINE BILIRUBIN NEG (NEG); URINE BLOOD 2+ (NEG); URINE COLOR YELLOW; URINE GLUCOSE NEG (NEG); URINE KETONE TRACE (NEG); URINE LEUKOCYTE ESTERASE TRACE (NEG); URINE NITRATE NEG (NEG); URINE PROTEIN TRACE (NEG); URINE SPECIFIC GRAVITY 1.013 (1.003-1.035)
[2017-04-01 14:34] LABS: URBCS1 AUWI 0-2 /[HPF] (0-2); URINE BACTERIA AUWI NEG (NEGATIVE); URINE SQUAMOUS EPITHELIAL CELL NONE SEEN /[HPF]; UWBCS1 AUWI 0-2 (0-5)
[2017-04-01 14:42] LABS: CULTURE INDICATED? NO
[2017-04-02 00:11] LABS: BUN/CREATININE RATIO 18.75; CALCIUM SERUM 8.1 mg/dL (8.4-10.2); CREATININE SERUM 0.8 mg/dL (0.6-1.4); GLOM FILT RATE Estimated 91.2 mL/min (>60)
[2017-04-02 07:04] LABS: HEMATOCRIT 32.9 % (38.0-50.0); HEMOGLOBIN 11.2 gm/dL (13.0-16.0); MEAN CORPUSCULAR HGB CONC 34.1 g/dL (30-36); MEAN PLATELET VOLUME 7.9 FL (6.5-11.5); RED BLOOD COUNT 3.74 X10e (3.90-5.60); RED CELL DISTRIBUTION WIDTH 15.8 % (11.0-15.5); WHITE BLOOD COUNT 7.1 X10e3 (4.0-10.5)
[2017-04-02 07:26] LABS: ALBUMIN SERUM 2.5 g/dL (3.5-5.0); BILIRUBIN,TOTAL 0.6 mg/dL (0.2-2.0); BUN/CREATININE RATIO 14.44; CALCIUM SERUM 8.4 mg/dL (8.4-10.2); CREATININE SERUM 0.9 mg/dL (0.6-1.4); GLOM FILT RATE Estimated 86.8 mL/min (>60); POTASSIUM 3.5 mmol/L (3.5-5.1); PROTEIN TOTAL SERUM 6.3 g/dL (6.0-8.3)
[2017-04-02 07:34] LABS: THYROID STIMULATING HORMONE 2.46 uIU/ml (0.34-5.60)
[2017-04-02 07:40] LABS: FREE THYROXIN (T4) 1.2 ng/dL (0.58-1.64)
[2017-04-03 06:56] LABS: HEMATOCRIT 32.7 % (38.0-50.0); HEMOGLOBIN 10.6 gm/dL (13.0-16.0); MEAN CELL VOLUME 87.8 FL (83-96); MEAN CORPUSCULAR HEMOGLOBIN 28.6 PG (28-34); MEAN CORPUSCULAR HGB CONC 32.5 g/dL (30-36); MEAN PLATELET VOLUME 7.8 FL (6.5-11.5); RED BLOOD COUNT 3.72 X10e (3.90-5.60); RED CELL DISTRIBUTION WIDTH 15.7 % (11.0-15.5); WHITE BLOOD COUNT 7.3 X10e3 (4.0-10.5)
[2017-04-03 07:06] LABS: INR 1.1
[2017-04-03 07:32] LABS: ALBUMIN SERUM 2.6 g/dL (3.5-5.0); BILIRUBIN,TOTAL 0.9 mg/dL (0.2-2.0); BUN/CREATININE RATIO 11.25; CALCIUM SERUM 8.8 mg/dL (8.4-10.2); CREATININE SERUM 0.8 mg/dL (0.6-1.4); GLOM FILT RATE Estimated 91.2 mL/min (>60); MAGNESIUM 1.2 mg/dL (1.6-3.0); PHOSPHOROUS 3.5 mg/dL (2.5-4.6); POTASSIUM 3.6 mmol/L (3.5-5.1); PROTEIN TOTAL SERUM 6.5 g/dL (6.0-8.3)
[2017-04-04 06:59] LABS: HEMATOCRIT 33.4 % (38.0-50.0); HEMOGLOBIN 11.2 gm/dL (13.0-16.0); MEAN CELL VOLUME 88.5 FL (83-96); MEAN CORPUSCULAR HEMOGLOBIN 29.5 PG (28-34); MEAN CORPUSCULAR HGB CONC 33.4 g/dL (30-36); MEAN PLATELET VOLUME 7.5 FL (6.5-11.5); RED BLOOD COUNT 3.78 X10e (3.90-5.60); RED CELL DISTRIBUTION WIDTH 15.8 % (11.0-15.5); WHITE BLOOD COUNT 6.6 X10e3 (4.0-10.5)
[2017-04-04 07:32] LABS: BUN/CREATININE RATIO 11.25; CALCIUM SERUM 8.8 mg/dL (8.4-10.2); CREATININE SERUM 0.8 mg/dL (0.6-1.4); GLOM FILT RATE Estimated 91.2 mL/min (>60); MAGNESIUM 1.8 mg/dL (1.6-3.0); POTASSIUM 3.8 mmol/L (3.5-5.1)
[2017-04-04 14:10] LABS: %MB 0.7 % (0.0-4.0); MB 2.2 ng/ml
[2017-04-04 20:07] LABS: %MB 0.8 % (0.0-4.0)
[2017-04-05 05:49] LABS: HEMATOCRIT 31.4 % (38.0-50.0); HEMOGLOBIN 10.7 gm/dL (13.0-16.0); MEAN CELL VOLUME 88.2 FL (83-96); MEAN CORPUSCULAR HEMOGLOBIN 29.9 PG (28-34); MEAN CORPUSCULAR HGB CONC 33.9 g/dL (30-36); MEAN PLATELET VOLUME 7.5 FL (6.5-11.5); RED BLOOD COUNT 3.56 X10e (3.90-5.60); RED CELL DISTRIBUTION WIDTH 15.8 % (11.0-15.5); WHITE BLOOD COUNT 7.3 X10e3 (4.0-10.5)
[2017-04-05 06:41] LABS: BUN/CREATININE RATIO 14.44; CALCIUM SERUM 8.8 mg/dL (8.4-10.2); CREATININE SERUM 0.9 mg/dL (0.6-1.4); GLOM FILT RATE Estimated 86.8 mL/min (>60); POTASSIUM 3.5 mmol/L (3.5-5.1)
[2017-04-06 01:57] LABS: HEMATOCRIT 29.7 % (38.0-50.0); HEMOGLOBIN 10.2 gm/dL (13.0-16.0); MEAN CELL VOLUME 88.4 FL (83-96); MEAN CORPUSCULAR HEMOGLOBIN 30.2 PG (28-34); MEAN CORPUSCULAR HGB CONC 34.2 g/dL (30-36); RED BLOOD COUNT 3.36 X10e (3.90-5.60); RED CELL DISTRIBUTION WIDTH 15.5 % (11.0-15.5); WHITE BLOOD COUNT 6.3 X10e3 (4.0-10.5)
[2017-04-06 02:10] LABS: INR 1.1; PARTIAL THROMBOPLASTIN TIME 31.2 SECONDS (23.5-31.3); PROTHROMBIN TIME (PATIENT) 11.9 SECONDS (10.0-11.7)
[2017-04-06 02:25] LABS: BUN/CREATININE RATIO 16.66; CALCIUM SERUM 8.5 mg/dL (8.4-10.2); CREATININE SERUM 0.9 mg/dL (0.6-1.4); GLOM FILT RATE Estimated 86.8 mL/min (>60); POTASSIUM 4.1 mmol/L (3.5-5.1)
[2017-04-07 06:28] LABS: HEMATOCRIT 29.7 % (38.0-50.0); HEMOGLOBIN 9.9 gm/dL (13.0-16.0); MEAN CELL VOLUME 89.1 FL (83-96); MEAN CORPUSCULAR HEMOGLOBIN 29.7 PG (28-34); MEAN CORPUSCULAR HGB CONC 33.3 g/dL (30-36); MEAN PLATELET VOLUME 7.1 FL (6.5-11.5); RED BLOOD COUNT 3.33 X10e (3.90-5.60); WHITE BLOOD COUNT 6.5 X10e3 (4.0-10.5)
[2017-04-07 07:00] LABS: BUN/CREATININE RATIO 12.22; CALCIUM SERUM 9.2 mg/dL (8.4-10.2); CREATININE SERUM 0.9 mg/dL (0.6-1.4); GLOM FILT RATE Estimated 86.8 mL/min (>60); POTASSIUM 4.1 mmol/L (3.5-5.1)
[2017-04-08 05:41] LABS: HEMATOCRIT 28.6 % (38.0-50.0); HEMOGLOBIN 9.5 gm/dL (13.0-16.0); MEAN CORPUSCULAR HEMOGLOBIN 29.6 PG (28-34); MEAN CORPUSCULAR HGB CONC 33.2 g/dL (30-36); MEAN PLATELET VOLUME 7.2 FL (6.5-11.5); RED BLOOD COUNT 3.21 X10e (3.90-5.60); RED CELL DISTRIBUTION WIDTH 15.6 % (11.0-15.5); WHITE BLOOD COUNT 6.9 X10e3 (4.0-10.5)
[2017-04-08 06:24] LABS: CREATININE SERUM 0.8 mg/dL (0.6-1.4); GLOM FILT RATE Estimated 91.2 mL/min (>60); POTASSIUM 3.8 mmol/L (3.5-5.1)
== END 2017-04-08 15:04 | DRG 617 ==
LOC: CED 10:19 → C5C 15:00 → CED 17:38 → C5C 17:38
PROVIDERS: Emergency Medicine; Internal Medicine; Nurse Practitioner Family; Orthopaedic Surgery
PROC: B24BYZZ Ultrasonography of Heart with Aorta using Other Contrast (ICD-10-PCS; 2017-04-04)
PROC: 4A023N7 Measurement of Cardiac Sampling and Pressure, Left Heart, Percutaneous Approach (ICD-10-PCS; 2017-04-06)
PROC: B211YZZ Fluoroscopy of Multiple Coronary Arteries using Other Contrast (ICD-10-PCS; 2017-04-06)
PROC: B215YZZ Fluoroscopy of Left Heart using Other Contrast (ICD-10-PCS; 2017-04-06)
PROC: 0Y6N0ZB Detachment at Left Foot, Partial 2nd Ray, Open Approach (ICD-10-PCS; 2017-04-07)
PROC: 0Y6N0ZC Detachment at Left Foot, Partial 3rd Ray, Open Approach (ICD-10-PCS; 2017-04-07)
PROC: 0Y6N0ZD Detachment at Left Foot, Partial 4th Ray, Open Approach (ICD-10-PCS; 2017-04-07)
PROC: 0Y6N0ZF Detachment at Left Foot, Partial 5th Ray, Open Approach (ICD-10-PCS; 2017-04-07)
PROC: 0Y6N0Z9 Detachment at Left Foot, Partial 1st Ray, Open Approach (ICD-10-PCS; principal; 2017-04-07 07:30)
DX: E11.69 Type 2 diabetes mellitus with other specified complication (principal); S32.019A Unspecified fracture of first lumbar vertebra, initial encounter for closed fracture; I95.89 Other hypotension; I42.6 Alcoholic cardiomyopathy; I50.22 Chronic systolic (congestive) heart failure; I11.0 Hypertensive heart disease with heart failure; E87.1 Hypo-osmolality and hyponatremia; M86.8X7 Other osteomyelitis, ankle and foot; L03.116 Cellulitis of left lower limb; F10.239 Alcohol dependence with withdrawal, unspecified; E11.42 Type 2 diabetes mellitus with diabetic polyneuropathy; T79.6XXA Traumatic ischemia of muscle, initial encounter; W18.30XA Fall on same level, unspecified, initial encounter; I25.10 Atherosclerotic heart disease of native coronary artery without angina pectoris; M81.0 Age-related osteoporosis without current pathological fracture; Z89.421 Acquired absence of other right toe(s); Z96.642 Presence of left artificial hip joint; Z79.84 Long term (current) use of oral hypoglycemic drugs; I34.0 Nonrheumatic mitral (valve) insufficiency; F17.210 Nicotine dependence, cigarettes, uncomplicated; I48.2 Chronic atrial fibrillation; M10.9 Gout, unspecified; Z79.01 Long term (current) use of anticoagulants; E83.42 Hypomagnesemia; L40.9 Psoriasis, unspecified; D50.9 Iron deficiency anemia, unspecified; B95.62 Methicillin resistant Staphylococcus aureus infection as the cause of diseases classified elsewhere
CPT/HCPCS: 36415; 70450; 72072; 72100; 72125; 73620; 78452; 80048; 80053; 80076; 80202; 81003; 82550; 82553; 82947; 83605; 83735; 83880; 84100; 84439; 84443; 84484; 85025; 85027; 85610; 85652; 85730; 86140; 86592; 87040; 87070; 87077; 87186; 87205; 88305; 88311; 92526; 92610; 93005; 93017; 93306; 96361; 96374; 97110; 97116; 97162; 97166; 97530; 99285; A9500; C1769; C1887; C1894; G8978-GP; G8979-GP; G8987-GO; G8988-GO; G8996-GN; G8997-GN; G8998-GN; J0295; J0692; J1644; J1650; J2250; J2270; J2370; J2785; J3010; J3370; J3475

== ENCOUNTER 2017-04-10 16:35 | Inpatient (IN) | payer MEDICARE, OTHER ==
[~2017-04-10] VITALS: Ht 188 cm; Wt 93.9 kg
--- NOTE | ~2017-04-10 | EKG ---
PATIENT: GINA LOERA UNIT #: [id number] Ventricular Rate: 106 BPM Atrial Rate: 85 BPM QRS Duration: 66 ms Q-T Interval: 214 ms QTC Calculation(Bezet): 284 ms Calculated R Sibley: 37 degrees Calculated T Sibley: 36 degrees Diagnosis Line: Atrial fibrillation with rapid ventricular Diagnosis Line: response Diagnosis Line: Nonspecific T wave abnormality Diagnosis Line: Abnormal ECG Diagnosis Line: When compared with ECG of 04-APR-2017 05:55, Diagnosis Line: Nonspecific T wave abnormality now evident in Diagnosis Line: Inferior leads Diagnosis Line: Nonspecific T wave abnormality, worse in Diagnosis Line: Anterolateral leads Diagnosis Line: QT has shortened Diagnosis Line: Confirmed by BRIAN GREGORIO MD ([id number]) on 04/11/2017 Diagnosis Line: 8:42:46 AM INTERPRETING MD: JG SHERWOOD
--- NOTE | ~2017-04-10 | CO ---
Unit #: [id number] #: [id number] Patient: GINA LOERA [id number] [address] [place], [place] [address] [id number] I MR#: [id number] NAME: GINA LOERA ROOM: 301 Age: 71 Sex: M Admission Date: 04/10/2017 : 1945 Attending Physician: Bel Ellison M.D. Primary Care Physician: Joel Herman Jr., M.D. Consultation Date: 04/11/2017 CONSULTATION REPORT REASON FOR CONSULTATION Fever in the setting of diabetic foot infection. HISTORY OF PRESENT ILLNESS This is a 71-year-old gentleman who is extremely a poor historian. I have reviewed his medical records from recent admission including discharge and current admission history. He is a 71-year-old gentleman with multiple medical problems, who was recently hospitalized for what appeared to be left great toe osteomyelitis for which he underwent amputation at the metatarsophalangeal joint. Culture grew MRSA. He was discharged on oral Bactrim. Apparently, he had a fever of 103 at residential with some lethargy and he was sent back to the hospital where he was started on vancomycin and Zosyn. ID was consulted. I did see Bactrim on his medical reconciliation form, so he was indeed on oral Bactrim at the time of current admission. His other medical issues include coronary artery disease, atrial fibrillation, diabetes, CHF, psoriasis, gout, peripheral neuropathy, hypertension, alcohol abuse. His most recent admission to this facility was on 04/01/2017 with fall, rhabdomyolysis and left foot infection for which he underwent amputation of the great toe. He also had alcohol withdrawal syndrome in the hospital and treated appropriately. His current chest x-ray and urinalysis are negative and blood cultures are pending. He is currently on vancomycin and Zosyn. MRI of the foot is pending. ID was consulted to evaluate for fever of 103. PAST MEDICAL HISTORY Atrial fibrillation, coronary artery disease with stenting of the LAD, diabetes, congestive heart failure, peripheral neuropathy, chronic alcohol abuse, gout, hypertension, osteoporosis, compression fracture of the thoracic vertebra, recent left hallux amputation and hip replacement. ALLERGIES Toradol. CURRENT MEDICATIONS Prilosec, Imdur, allopurinol, lisinopril, metoprolol, Seroquel, Neurontin, aspirin, thiamine, furosemide, warfarin, NovoLog, vancomycin and Zosyn. Home medications were reviewed at the time of admission. He was taking hydroxyzine, allopurinol, Zestril, Lopressor, Prilosec, Seroquel, gabapentin, Glucophage, Colace, aspirin, Imdur, thiamine, Bactrim, Lasix, Coumadin, Percocet, Tylenol, Ativan, and milk of magnesia. SOCIAL HISTORY He is currently in the rehab. Previous to that, he was living with his Unit #: [id number] #: [id number] Patient: GINA LOERA granddaughter. He is a chronic alcohol abuser and smokes cigarettes daily. History of cocaine abuse in the past. FAMILY HISTORY Coronary artery disease. REVIEW OF SYSTEMS Fever without any chills. Some lethargy. Denies any cough, abdominal pain, dysuria, headache. Reduced drainage from the incision site. PHYSICAL EXAMINATION GENERAL: Reveals an elderly gentleman, who looks older than the stated age. He is awake, somewhat lethargic and somewhat slow to respond, but extremely poor historian. He does not appear to be septic or toxic at this time. VITAL SIGNS: Temperature 98.2, no fever was documented during this admission, although temperature was 103 at the residential. Heart rate is 66, respirations 18, blood pressure 107/69, lowest blood pressure was 94/61 yesterday. NECK: Supple. Oral hygiene is extremely poor. Several teeth are missing. SKIN: There is edema bilaterally. Hallux amputation site of the left looks clean. There was no drainage. Mild erythema and tenderness was noted, but there was no obvious abscess or lymphangitis on the foot. LUNGS: Clear to percussion and auscultation. HEART: Sounds are normal. There are no murmurs. ABDOMEN: Obese, soft and nontender. There is no rebound or guarding. Bowel sounds are normal. NEUROLOGIC: He is awake and able to move all 4 extremities. DIAGNOSTIC STUDIES LABORATORY RESULTS: Urinalysis shows no evidence of urinary tract infection. Sodium is 133, potassium 4.5, chloride 98, CO2 of 27, BUN 17, creatinine 1.2. AST 61, ALT 21, alkaline phosphatase 62, bilirubin 0.3. Lactic acid 1.1. White count 8.6, hemoglobin 10.1, platelets 452, neutrophils 87%. IMPRESSION Recent left great toe amputation due to osteomyelitis, admitted with fever of unknown etiology, although fever is not present in the hospital. It could have been due to Bactrim, which is known to cause fever. Other possibility includes a new infection including foot infection with possible residual osteo or abscess, or perhaps bacteremia. RECOMMENDATION Agree with vancomycin and Zosyn. We will continue to follow blood cultures, which are negative to date and chest x-ray is also negative. Further recommendation will follow according to clinical course and outcome of the current workup including MRI of the foot. Dictated by... Stephanie Camp/mihaela TD: 04/12/2017 01:33 JOB #: [id number] Unit #: [id number] #: [id number] Patient: GINA LOERA CONSULTATION REPORT Page 1 of 1 X Jareth Lloyd MD X CONSULTATION REPORT
--- NOTE | ~2017-04-10 | HP ---
Unit #: [id number] #: [id number] Patient: GINA LOERA [id number] [facility]. [place], [place] [address] [id number] MR#: [id number] NAME: GINA LOREA ROOM: Age: 71 Sex: M Admission Date: 04/10/2017 : 1945 Attending Physician: Natasha Rivera M.D. Primary Care Physician: Joel Herman Jr., M.D. HISTORY AND PHYSICAL CHIEF COMPLAINT Patient transferred from rehab for the evaluation of fever 103, change in mental status. DISCUSSION This is a 71-year-old gentleman who has a history of coronary artery disease with previous stent to LAD in 2009, history of permanent afib, diabetes, CHF, ejection fraction 40% to 45%, gout, psoriasis, peripheral neuropathy, hypertension, alcohol abuse. He was admitted to [facility] on 04/01/17 with chief complaint of falling, multiple falls at home. He was drinking six beers a day. In the ER he was found to be in acute rhabdomyolysis, CK was 4094, and acute L1 compression fracture which was treated conservatively and left foot cellulitis. Patient was initially treated with cefepime, vancomycin and consultation was done with the ortho, Dr. Barry, for suspicious osteomyelitis and patient eventually underwent left hallux amputation through metatarsophalangeal joint and culture came back positive with MRSA which was sensitive to tetracycline and Bactrim. Patient was eventually switched to p.o. Bactrim and patient had also alcohol withdrawal while in the hospital which was stabilized and eventually patient was sent to the snf on 04/08/17 and patient was in rehab and was sent back to the ER today for the evaluation of fever which has a maximum temperature 103 and hypoxia and patient sent to emergency room. He is at this time alert, oriented x2. He is answering questions appropriately but his left foot is mildly red and swollen and patient has been admitted for left cellulitis, rise in fever and change in mental status though he denies any chest pain, denies nausea, vomiting, fever, cough or any other complaint. PAST MEDICAL HISTORY 1. History of chronic permanent afib. 2. History of coronary artery disease with previous stent to LAD in 2009. 3. History of diabetes. 4. History of chronic congestive heart failure with ejection fraction 40% to 45%. 5. History of peripheral neuropathy. 6. Chronic alcohol abuse. 7. Gout. 8. Hypertension. 9. History of osteoporosis. 10. Recent acute "thoracic compression fracture L1". 11. Recent great toe amputation though metatarsophalangeal joint. Unit #: [id number] #: [id number] Patient: GINA LOERA PAST SURGICAL HISTORY 1. History of partial right second toe amputation. 2. Recent left great toe amputation through metatarsophalangeal joint on 04/07/17. 3. History of stent in 2009. 4. History of left hip replacement. ALLERGIES Toradol. FAMILY HISTORY Positive for coronary artery disease. SOCIAL HISTORY Patient used to live with granddaughter and now he lives in the rehab. He used to drink six beers daily and half pack of cigarettes daily. He has a history of cocaine abuse in the past as per old record but denies any other illicit drugs currently. He is in the rehab at this time. MEDICATION The discharge medication on 04/08/17 from the [facility] is followin. Triamcinolone cream 0.5% b.i.d. 2. Tylenol 650 mg q.6 h. p.r.n. 3. Coumadin 5 mg daily. 4. Gabapentin 900 mg t.i.d. 5. Glucophage 1 g half tablet b.i.d. 6. Seroquel 300 mg q.h.s. 7. Hydroxyzine 10 mg q.8 h. p.r.n. 8. Metoprolol 25 b.i.d. 9. Colace 100 mg b.i.d. 10. Milk of magnesia 30 ml daily p.r.n. for constipation. 11. Lisinopril 20 mg daily. 12. Allopurinol 300 mg daily. 13. Multivitamin one tablet daily. 14. Aspirin 81 mg daily. 15. Percocet 5 mg one tablet q.4 h. p.r.n. 16. Prilosec 20 mg daily. 17. Imdur 30 mg daily. 18. Thiamine 100 mg daily. 19. Bactrim DS one tablet b.i.d. 20. Lasix 20 mg p.o. q.a.m. REVIEW OF SYSTEMS All review of systems negative except as per history of presenting illness. PHYSICAL EXAMINATION GENERAL: On examination elderly man lying in the bed comfortably currently not in any distress. On general examination he is alert, awake, oriented x2, not in any distress. VITAL SIGNS: Current vitals are following; temperature 98.6, heart rate 115, respiratory rate 19, blood pressure 107/80. HEENT: On HEENT examination pupils equally react to light and accommodation, head is normocephalic and atraumatic. NECK: Supple. No JVD. HEART: S1, S2. No murmur. Irregular. LUNGS: Clear to auscultation but no rhonchi, no wheezing. Unit #: [id number] #: [id number] Patient: GINA LOERA ABDOMEN: Soft, nontender and nondistended. Bowel sounds positive. EXTREMITIES: Left foot has an amputation of second and left great toe. Around suture site looks okay but left foot is mildly red and swollen. NEUROLOGIC: He is moving all extremities. DIAGNOSTIC STUDIES LABORATORY: Workup is following; his UA is negative, sodium 133, potassium 4.5, chloride 98, CO2 27, glucose 96, BUN 17, creatinine 1.2, LFTs within normal limits, lactic acid 1.1, INR is 1.2, troponin is 0.05; CBC white count 8.6, hemoglobin 10, hematocrit 30, platelet is 452. ASSESSMENT AND PLAN 1. Status post change in mental status which is improved. 2. Fever, maximum 103. 3. Cellulitis of left foot. 4. History of osteomyelitis of left hallux distal phalanx, status post left great toe amputation through metatarsal joint on 04/07/17. 5. Methicillin-resistant Staphylococcus aureus in the wound. 6. Anemia. 7. Diabetes. Hold metformin and place on sliding scale. 8. History of permanent atrial fibrillation on anticoagulation. 9. History of recent fall with acute "thoracic compression fracture of L1", on conservative treatment. 10. History of congestive heart failure with ejection fraction 40% to 45%. 11. Coronary artery with previous stent to left anterior descending in 2009. 12. History of gout. 13. History of psoriasis. 14. Peripheral neuropathy. 15. Hypertension. 16. History of alcohol abuse. 17. Deep venous thrombosis prophylaxis, on Coumadin. Dictated by Michael Godfrey M.D. ALISA/denis TD: 04/10/2017 20:55 JOB #: [id number] HISTORY AND PHYSICAL Page 1 of 1 X X HISTORY AND PHYSICAL
--- NOTE | ~2017-04-10 | MR58 ---
[facility] A Service of [facility] RADIOLOGY TEXT RESULTS PATIENT: GINA LOERA LOCATION: [facility] 301-01 : [birth year] UNIT #: [id number] AGE: [address]: Bel Ellison MD SEX: M ORDER DR: [id number] [facility] [address] [facility]. [place], [place] [address] [id number] I MR#: [id number] Acc #: [id number] NAME: GINA LOERA : 1945 SEX: M STUDY DATE/TIME: 04/11/2017 11:04 UNIT: [address] ROOM: 301 STUDY DESCRIPTION: MR Foot WWo Contrast Lt Attending Physician: Bel Ellison M.D. Ordering Physician: Bel Ellison M.D. Primary Care Physician: Joel Herman Jr., M.D. MRI CENTER REPORT This report is preliminary unless electronic signature is present. EXAM MRI of the left foot with and without contrast. HISTORY 71-year-old male with severe pain and toe area history of great and second toe amputation, 04/07/2017 for infection. COMPARISON Left foot film, 04/02/2017. FINDINGS Multiplanar, multiecho imaging was performed of the left foot utilizing a high field magnet dedicated protocol. Coronal T1-weighted images performed following IV gadolinium. The patient is status post amputation of the great toe at the level of the MTP joint. There is marrow edema and marrow enhancement within the distal aspect of the first metatarsal. This is nonspecific and may be postsurgical in nature, though underlying osteomyelitis not excluded. Correlate for clinical signs of infection. No drainable fluid collection or abscess. Patient has also undergone a second toe amputation. There is some edema in the adjacent soft tissue does demonstrate some enhancement postcontrast could represent localized cellulitis, though this could also be postsurgical in nature. Again, no drainable fluid collection or abscess. Third, fourth and fifth digits unremarkable. The patient is fused across the fifth MTP joint. There is also partial fusion at the first tarsometatarsal joint and between the navicular and the cuneiform. Arthritic changes seen at the talonavicular joint. Generalized atrophy of the intrinsic musculature of the foot may reflect chronic neurovascular disease. There is fusion of the hallux sesamoids to the first metatarsal base. Large probable degenerative cyst is noted within the navicular. Ankle and subtalar joint unremarkable. STS. [facility] A Service of [facility] RADIOLOGY TEXT RESULTS PATIENT: GINA LOERA LOCATION: [facility] 301-01 : [birth year] UNIT #: [id number] AGE: [address]: Bel Ellison MD SEX: M ORDER DR: IMPRESSION 1. Postsurgical changes from recent amputation of the first and second toes. 2. Marrow edema and enhancement of the distal aspect of the first metatarsal and first metatarsal head. This is nonspecific in the setting of recent surgery but could represent residual or developing osteomyelitis. Correlate with patient's clinical history and laboratory data. There is also enhancement of the soft tissues within the forefoot, particularly about the distal aspect of the first and second metatarsals, and this could represent cellulitis but no drainable fluid collection or abscess. No discernible penetrating ulcers identified. 3. Generalized atrophy of the intrinsic foot musculature compatible with longstanding neurovascular disease. There is also generalized soft tissue swelling and edema about the foot. Dictated by... Ninoska Sommer M.D. THIS IS AN ELECTRONICALLY VERIFIED REPORT Ninoska Sommer M.D. at 04/11/2017 9:40 PM Claudette TD: 04/11/2017 20:42 JOB #: [id number] MRI CENTER REPORT Page 1 of 1 COPY
--- NOTE | ~2017-04-10 | DS ---
Unit #: [id number] #: [id number] Patient: GINA LOERA [id number] [address] [place], [place] [address] [id number] I MR#: [id number] NAME: GINA LOERA ROOM: 301 Age: 71 Sex: M Admission Date: 04/10/2017 : 1945 Discharge Date: 04/13/2017 Attending Physician: Bel Ellison M.D. Primary Care Physician: Joel Herman Jr., M.D. DISCHARGE SUMMARY REASON FOR ADMISSION 1. Mental status changes. 2. Fever. HISTORY OF PRESENT ILLNESS/HOSPITAL COURSE Patient is a very pleasant 71-year-old male with a history of mild to moderate dementia, recent hospital admission secondary to amputation of the left foot with MRSA wound/osteomyelitis, who presented from rehab facility for evaluation of fever as well as change in mental status. While here in the hospital, he was placed on telemetry floor. There were no documented fevers while he was here. His mental status did show improvement. He appears to be close to baseline. He does likely suffer from mild to moderate dementia. He has a prior history of longstanding alcohol abuse which has likely contributed to it. He underwent routine laboratory studies including blood cultures which did not show any acute bacterial growth. We did place consultation to both orthopedic services as well as infectious disease services. Dr. Barry and associates saw and evaluated patient. There was no acute intervention which was recommended. Wound appeared to be healing well. There was some mild erythema which was noted but no other acute process. ID services were consulted for antibiotic management. Patient did ultimately undergo MRI of the left foot which did reveal nonspecific findings which could represent either residual or developing osteomyelitis. While here, he was placed on IV vancomycin. We are currently awaiting infectious disease recommendations at the time of discharge for transition back to rehab. Once those recommendations are made, the patient will be discharged back to rehab for ongoing care. FINAL DISCHARGE DIAGNOSES 1. Mental status changes, now resolved. 2. Acute delirium on baseline dementia, likely multifactorial in origin. 3. Fever at rehab facility with no documented fever while here. 4. Recent hospital admission secondary to left great toe methicillin-resistant Staphylococcus aureus infection, status post amputation. 5. Early/ resolving osteomyelitis left foot. 6. Systolic heart failure with ejection fraction of 40% to 45%. 7. Permanent atrial fibrillation, on chronic anticoagulation. 8. Diabetes. 9. Psoriasis. 10. Peripheral neuropathy. 11. Hypertension. Unit #: [id number] #: [id number] Patient: GINA LOERA 12. Prior history of alcohol abuse. 13. Lumbar one compression fracture. 14. Acute versus subacute conservative management recommended on previous hospital admissions. FINAL DISCHARGE MEDICATIONS Are as follows: 1. Tylenol 650 mg p.o. q.8 h. p.r.n. 2. Coumadin 6.5 mg p.o. daily. 3. Neurontin 900 mg p.o. t.i.d. 4. Metformin 500 mg p.o. b.i.d. 5. Seroquel 300 mg o q.h.s. 6. Atarax 10 mg p.o. q.8 h. p.r.n. 7. Ativan 0.5 mg p.o. q.8 h. p.r.n. 8. Lopressor 12.5 mg p.o. b.i.d. 9. Colace 100 mg p.o. b.i.d. 10. Milk of magnesia 30 mL p.o. daily p.r.n. 11. Lasix 20 mg p.o. daily. 12. Zestril 20 mg p.o. daily. 13. Allopurinol 300 mg p.o. q.h.s. 14. Aspirin 81 mg p.o. daily. 15. Percocet 5/325 one tablet p.o. q.8 h. p.r.n. 16. Omeprazole 20 mg p.o. daily. 17. Imdur 30 mg p.o. daily. 18. Thiamin 100 mg p.o. daily. 19. Final discharge antibiotic to be determined by infectious disease service. DISCHARGE CONDITION Stable. DISCHARGE DISPOSITION Home. DISCHARGE INSTRUCTIONS Please note the patient's INR at the time of discharge is 1.4. Lovenox 1 mg/kg subcu b.i.d. will be added at time of discharge and may be discontinued once INR is greater than 2.0. This can be managed at rehab facility. Dictated by... Bel Ellison M.D. ISN/denis TD: 04/13/2017 16:11 JOB #: [id number] Unit #: [id number] #: [id number] Patient: GINA LOERA DISCHARGE SUMMARY Page 1 of 1 X Bel Ellison MD X DISCHARGE SUMMARY
--- NOTE | ~2017-04-10 | XA166 ---
[facility] A Service of [facility] RADIOLOGY TEXT RESULTS PATIENT: GINA LOERA LOCATION: C3A 301- : 47 UNIT #: [id number] AGE: [address]: Bel Ellison MD SEX: M ORDER DR: [id number] [place] [id number] [facility]. [place], [place] [address] [id number] I MR#: [id number] Acc #: [id number] NAME: GINA LOERA : 1945 SEX: M STUDY DATE/TIME: 04/13/2017 15:06 UNIT: C3A PCU ROOM: 301 STUDY DESCRIPTION: XA PICC Line Placement WO Port Attending Physician: Bel Ellison M.D. Ordering Physician: John Zimmerman M.D. Primary Care Physician: Joel Herman Jr., M.D. MEDICAL IMAGING REPORT This report is preliminary unless electronic signature is present EXAM Left-sided PICC line placement INDICATION Need for IV access for IV antibiotics in a patient with a history of osteomyelitis in the left foot. PRE-PROCEDURE The procedure was explained to the patient and/or patient u.s. representative including risks, benefits, potential complications and potential for alternative forms of treatment. Informed consent was obtained, and prior to initiating the procedure a formal timeout procedure was performed. PROCEDURE Using full standard sterile barrier technique, including caps, gowns, gloves, masks, as well as sterile skin preparation and standard sterile draping, the left arm was prepped and draped in the usual fashion, and real-time sterile ultrasound guidance was used to localize an arm vein and to confirm vessel patency. A hard copy ultrasound image was recorded. After local anesthesia with 1% Xylocaine, the vein was punctured using real-time sterile ultrasound guidance, and an 0.018 guidewire was advanced into the superior vena cava, using fluoroscopic guidance. A 4 [place] single-lumen PICC was then measured and deployed with the tip positioned in the superior vena cava. The position of the line was documented with a radiographic image. The line was secured in place with an adhesive dressing and an antibiotic patch was applied. Total fluoro time was 0.1 minutes. AK was 1 mGy. IMPRESSION Successful placement of a 4 [place] single-lumen PowerPICC via the left arm under ultrasound and fluoroscopic guidance. The tip of the PICC is in good position in the superior vena cava. [facility] A Service of [facility] RADIOLOGY TEXT RESULTS PATIENT: GINA LOERA LOCATION: C3A 301-01 : [birth year] UNIT #: [id number] AGE: [address]: Bel Ellison MD SEX: M ORDER DR: Dictated by... Rosalinda Avilez M.D. THIS IS AN ELECTRONICALLY VERIFIED REPORT Rosalinda Avilez M.D. at 04/15/2017 4:17 PM ALFRED/phyllis TD: 04/15/2017 13:26 JOB #: [id number] MEDICAL IMAGING REPORT Page 1 of 1 COPY
--- NOTE | ~2017-04-10 | CR72 ---
[facility] A Service of [facility] RADIOLOGY TEXT RESULTS PATIENT: GINA LOERA LOCATION: [facility] 301- : 47 UNIT #: [id number] AGE: [address]: Bel Ellison MD SEX: M ORDER DR: [id number] [facility] [address] [place], [place] [address] [id number] I MR#: [id number] Acc #: [id number] NAME: GINA LOERA : 1945 SEX: M STUDY DATE/TIME: 04/10/2017 [facility]: [facility] STUDY DESCRIPTION: CR Chest Single View Portable Attending Physician: Saud White M.D. Ordering Physician: Natasha Rivera M.D. Primary Care Physician: Joel Herman Jr., M.D. MEDICAL IMAGING REPORT This report is preliminary unless electronic signature is present EXAM Portable chest 04/10 at 17:58 INDICATIONS Fever with arrhythmia and mental status changes that started yesterday. TECHNIQUE AP portable chest is compared with 10/09/2016. FINDINGS Cardiac and mediastinal contours are normal. The lungs are clear, except for granulomatous calcification. No pneumothorax. There are old right-side rib fractures. IMPRESSION No active disease. Dictated by... Trenton Gonzalez Jr., M.D. THIS IS AN ELECTRONICALLY VERIFIED REPORT Trenton Gonzalez Jr., M.D. at 04/11/2017 4:12 PM RLK/mansi TD: 04/10/2017 23:27 JOB #: [id number] MEDICAL IMAGING REPORT Page 1 of 1 COPY
--- NOTE | ~2017-04-10 | EKG ---
PATIENT: GINA LOERA UNIT #: [id number] Ventricular Rate: 112 BPM Atrial Rate: 84 BPM QRS Duration: 68 ms Q-T Interval: 330 ms QTC Calculation(Bezet): 450 ms Calculated R [place]: 10 degrees Calculated T [place]: 3 degrees Diagnosis Line: Atrial fibrillation with rapid ventricular Diagnosis Line: response Diagnosis Line: Nonspecific T wave abnormality Diagnosis Line: Abnormal ECG Diagnosis Line: When compared with ECG of 10-APR-2017 17:53, Diagnosis Line: Nonspecific T wave abnormality, improved in Diagnosis Line: Anterior leads Diagnosis Line: Confirmed by BRIAN GREGORIO MD ([id number]) on 04/14/2017 Diagnosis Line: 11:30:57 PM INTERPRETING MD: JG SHERWOOD
--- NOTE | ~2017-04-10 | CO ---
Unit #: [id number] #: [id number] Patient: GINA LOERA [id number] [address] [address] [id number] I MR#: [id number] NAME: GINA LOERA ROOM: 301 Age: 71 Sex: M Admission Date: 04/10/2017 : 1945 Attending Physician: Bel Ellison M.D. Primary Care Physician: Joel Herman Jr., M.D. CONSULTATION REPORT CHIEF COMPLAINT Fever, transferred from rehab. HISTORY OF PRESENT ILLNESS This is a 71-year-old gentleman. He was just admitted recently for left foot cellulitis on 04/07/2017 just 4 days ago, the patient underwent left hallux amputation of the metatarsophalangeal joint for clinical osteomyelitis. The patient tolerated the procedure well and was just discharged from this facility on 04/08/2017 on p.o. Bactrim. The patient presented back for readmission yesterday on 04/10/2017 for changes in mental status and fever. The patient is quite a poor historian. He is not able to really give me any history significant to what problems he had, brought him back to the hospital. Currently on exam, he is resting comfortably in bed and is alert and oriented x2. PAST MEDICAL HISTORY Positive for chronic atrial fibrillation, coronary artery disease with stent placement, diabetes, congestive heart failure, peripheral neuropathy, chronic alcohol abuse, gout, hypertension, osteoporosis, spinal compression fracture. PAST SURGICAL HISTORY Includes left hallux amputation 4 days ago on 04/07/2017, cardiac stent placement, left hip arthroplasty. MEDICATIONS The patient's discharge medications from 04/08/2017 from this facility include triamcinolone cream, Tylenol, Coumadin, gabapentin, Glucophage, Seroquel, hydroxyzine, metoprolol, Colace, milk of magnesia, lisinopril, allopurinol, multivitamin, aspirin, Percocet, Prilosec, Imdur, thiamine, Bactrim, and Lasix. Bactrim DS was prescribed 1 tablet b.i.d. for 7 days. ALLERGIES The patient has prior allergy history of Toradol. FAMILY HISTORY Positive for coronary artery disease. SOCIAL HISTORY The patient most recently was at rehab, prior to that it appears he lived with his granddaughter. Continues to drink beer on a daily basis as well as smokes cigarettes on a daily basis. History of illicit drug use, however, no current admitted illicit drug use. Unit #: [id number] #: [id number] Patient: GINA LOERA PHYSICAL EXAMINATION GENERAL: On examination today, the patient is resting comfortably in bed. EXTREMITIES: The left foot is examined. Hallux amputation site is healing well. There is minimal erythema most consistent with recent amputation. The incision is dry. There is no drainage. There is no significant swelling. Incisions are all appearing to be healing well. VITAL SIGNS: The patient's vital signs is afebrile, 98.1. Pulse this morning was 40, however, he had then in the 100s, I do not know how the most recent vital signs. Blood pressure 131/87. DIAGNOSTIC STUDIES LABORATORY RESULTS: The patient's white blood cell count on admission is 8.6. IMPRESSION Status post left hallux amputation 4 days ago without any current clinical findings of infection. PLAN The patient has been started on IV antibiotics and MRI has been ordered as well. Infectious Disease has been consulted. We will await additional input and imaging findings. A clean dry dressing was placed on the extremity today. The patient will be placed on postoperative shoe. May ambulate to get up to go to bathroom in the postoperative shoe. Otherwise, we would like this clean and dry and the dressing to be kept intact. Suture removal will be planned for around 14 days postoperatively. We will continue to follow along with this patient. Dictated by... Marilin Carpenter M.D. JKP/mihaela TD: 04/12/2017 01:43 JOB #: [id number] CONSULTATION REPORT Page 1 of 1 X Gricelda Freeman CONSULTATION REPORT
[~2017-04-10 16:35] MED LIST changes: +COUMADIN PO; +GABAPENTIN300 MG PO; +LOPRESSOR PO; +METFORMIN PO; +PATIENT'S PHARMACY; +PRILOSEC PO; +TRIAMCINOLONE A15 G3 TOP
[2017-04-10 18:24] LABS: BASOPHIL% 0.2 % (0-2.5); EOSINOPHIL# 0.1 X10e3 (0-0.7); EOSINOPHIL% 0.9 % (0.0-7.0); HEMATOCRIT 30.1 % (38.0-50.0); HEMOGLOBIN 10.1 gm/dL (13.0-16.0); LYMPHOCYTE# 0.5 X10e3 (1.0-3.5); LYMPHOCYTE% 6.1 % (17.0-45.0); MEAN CELL VOLUME 88.5 FL (83-96); MEAN CORPUSCULAR HEMOGLOBIN 29.8 PG (28-34); MEAN CORPUSCULAR HGB CONC 33.7 g/dL (30-36); MEAN PLATELET VOLUME 7.2 FL (6.5-11.5); MONOCYTE# 0.4 X10e3 (0-1.0); NEUTROPHIL# 7.5 X10e3 (1.5-7.1); NEUTROPHIL% 87.8 % (40-75); PLATELET COUNT 452 X10e3 (140-420); RED CELL DISTRIBUTION WIDTH 16.2 % (11.0-15.5); WHITE BLOOD COUNT 8.6 X10e3 (4.0-10.5)
[2017-04-10 18:25] LABS: DIFF IND NO
[2017-04-10 18:36] LABS: POC - CKMB 9.2 ng/mL (0.0-7.9); POC - TROPONIN <0.05 ng/mL (<=0.05)
[2017-04-10 18:36] LABS: INR 1.2; PROTHROMBIN TIME (PATIENT) 12.8 SECONDS (10.0-11.7)
[2017-04-10 18:47] LABS: URINE SOURCE CLEAN CATCH
[2017-04-10 18:47] LABS: ALBUMIN SERUM 2.9 g/dL (3.5-5.0); BILIRUBIN, DIRECT 0.3 mg/dL (0.0-0.2); BILIRUBIN,INDIRECT 0.4 mg/dL (0.0-0.9); BILIRUBIN,TOTAL 0.7 mg/dL (0.2-2.0); BUN/CREATININE RATIO 14.16; CALCIUM SERUM 9.1 mg/dL (8.4-10.2); CREATININE SERUM 1.2 mg/dL (0.6-1.4); GLOM FILT RATE Estimated 61.3 mL/min (>60); POTASSIUM 4.5 mmol/L (3.5-5.1); PROTEIN TOTAL SERUM 7.7 g/dL (6.0-8.3)
[2017-04-10 18:51] LABS: URINE APPEARANCE CLEAR; URINE BILIRUBIN NEG (NEG); URINE BLOOD 1+ (NEG); URINE COLOR YELLOW; URINE GLUCOSE NEG (NEG); URINE KETONE NEG (NEG); URINE LEUKOCYTE ESTERASE NEG (NEG); URINE NITRATE NEG (NEG); URINE PH 5.5 (5-8); URINE PROTEIN 1+ (NEG); URINE SPECIFIC GRAVITY 1.018 (1.003-1.035); URINE UROBILINOGEN 0.2 MG/DL (NEG)
[2017-04-10 18:54] LABS: URBCS1 AUWI 0-2 /[HPF] (0-2); URINE BACTERIA AUWI NEG (NEGATIVE); URINE SQUAMOUS EPITHELIAL CELL NONE SEEN /[HPF]; UWBCS1 AUWI 0-2 (0-5)
[2017-04-10 18:58] LABS: CULTURE INDICATED? NO
[2017-04-10] MEDS ORDERED: GLUCOPHAGE500 MG PO (20:34)
[2017-04-10] MEDS ORDERED: DOCUSATE SODIU100 MG PO (20:35)
[2017-04-10] MEDS ORDERED: ASPIRIN81 MG PO (20:35)
[2017-04-10] MEDS ORDERED: IMDUR-ER30 M1 PO (20:36)
[2017-04-10] MEDS ORDERED: THIAMINE HCL100 M2 PO (20:36)
[2017-04-10] MEDS ORDERED: LASIX20 MG PO (20:37)
[2017-04-10] MEDS ORDERED: BACTRIM DS TAB1 EACH PO (20:37)
[2017-04-10] MEDS ORDERED: COUMADIN6 MG PO (20:38)
[2017-04-10] MEDS ORDERED: PERCOCET5/325 PO ×2 (20:38→20:39)
[2017-04-10] MEDS ORDERED: ATIVAN0.5 MG PO (20:40)
[2017-04-10] MEDS ORDERED: TYL325 PO (20:40)
[2017-04-10] MEDS ORDERED: MILK OF MAGNESIA PO (20:41)
[2017-04-10] MEDS ORDERED: HYDROXYZINE HCL10 MG PO (20:41)
[2017-04-11 05:15] LABS: INR 1.3; PARTIAL THROMBOPLASTIN TIME 31.2 SECONDS (23.5-31.3); PROTHROMBIN TIME (PATIENT) 13.7 SECONDS (10.0-11.7)
[2017-04-11 06:24] LABS: BUN/CREATININE RATIO 14.54; CALCIUM SERUM 8.8 mg/dL (8.4-10.2); CREATININE SERUM 1.1 mg/dL (0.6-1.4); GLOM FILT RATE Estimated 68.1 mL/min (>60); POTASSIUM 4.1 mmol/L (3.5-5.1)
[2017-04-11 21:31] LABS: BASOPHIL# 0.1 X10e3 (0-0.3); BASOPHIL% 1.1 % (0-2.5); EOSINOPHIL# 0.3 X10e3 (0-0.7); EOSINOPHIL% 3.9 % (0.0-7.0); HEMATOCRIT 29.7 % (38.0-50.0); HEMOGLOBIN 9.8 gm/dL (13.0-16.0); LYMPHOCYTE# 0.9 X10e3 (1.0-3.5); MEAN CELL VOLUME 88.6 FL (83-96); MEAN CORPUSCULAR HEMOGLOBIN 29.2 PG (28-34); MEAN CORPUSCULAR HGB CONC 32.9 g/dL (30-36); MEAN PLATELET VOLUME 7.3 FL (6.5-11.5); MONOCYTE# 0.5 X10e3 (0-1.0); MONOCYTE% 7.6 % (3.0-12.0); NEUTROPHIL# 5.3 X10e3 (1.5-7.1); NEUTROPHIL% 75.4 % (40-75); PLATELET COUNT 431 X10e3 (140-420); RED BLOOD COUNT 3.35 X10e (3.90-5.60); RED CELL DISTRIBUTION WIDTH 16.3 % (11.0-15.5); WHITE BLOOD COUNT 7.1 X10e3 (4.0-10.5)
[2017-04-11 21:33] LABS: DIFF IND NO
[2017-04-12 05:48] LABS: HEMATOCRIT 30.4 % (38.0-50.0); HEMOGLOBIN 10.2 gm/dL (13.0-16.0); MEAN CELL VOLUME 88.8 FL (83-96); MEAN CORPUSCULAR HEMOGLOBIN 29.8 PG (28-34); MEAN CORPUSCULAR HGB CONC 33.5 g/dL (30-36); MEAN PLATELET VOLUME 7.4 FL (6.5-11.5); RED BLOOD COUNT 3.42 X10e (3.90-5.60); RED CELL DISTRIBUTION WIDTH 16.3 % (11.0-15.5); WHITE BLOOD COUNT 6.4 X10e3 (4.0-10.5)
[2017-04-12 06:02] LABS: INR 1.2; PROTHROMBIN TIME (PATIENT) 13.1 SECONDS (10.0-11.7)
[2017-04-12 06:45] LABS: CALCIUM SERUM 8.9 mg/dL (8.4-10.2); GLOM FILT RATE Estimated 76.5 mL/min (>60); POTASSIUM 4.1 mmol/L (3.5-5.1)
[2017-04-12 19:31] LABS: CALCIUM SERUM 8.6 mg/dL (8.4-10.2); GLOM FILT RATE Estimated 76.5 mL/min (>60); MAGNESIUM 1.2 mg/dL (1.6-3.0); POTASSIUM 3.9 mmol/L (3.5-5.1)
[2017-04-13 05:18] LABS: HEMOGLOBIN 10.6 gm/dL (13.0-16.0); MEAN CELL VOLUME 89.2 FL (83-96); MEAN CORPUSCULAR HEMOGLOBIN 29.5 PG (28-34); MEAN CORPUSCULAR HGB CONC 33.1 g/dL (30-36); MEAN PLATELET VOLUME 7.9 FL (6.5-11.5); RED BLOOD COUNT 3.58 X10e (3.90-5.60); RED CELL DISTRIBUTION WIDTH 16.1 % (11.0-15.5); WHITE BLOOD COUNT 5.9 X10e3 (4.0-10.5)
[2017-04-13 05:43] LABS: INR 1.4; PROTHROMBIN TIME (PATIENT) 15.1 SECONDS (10.0-11.7)
[2017-04-13 05:59] LABS: BUN/CREATININE RATIO 12.22; CALCIUM SERUM 9.1 mg/dL (8.4-10.2); CREATININE SERUM 0.9 mg/dL (0.6-1.4); GLOM FILT RATE Estimated 86.8 mL/min (>60)
== END 2017-04-13 18:24 | DRG 638 ==
LOC: CED 16:35 → CEDOF 20:30 → CED 21:28 → C3A PCU 22:06 → CEDOF 22:06 → C3A PCU 22:06
PROVIDERS: Emergency Medicine; Family Medicine; Internal Medicine
PROC: 02HV33Z Insertion of Infusion Device into Superior Vena Cava, Percutaneous Approach (ICD-10-PCS; principal; 2017-04-13)
PROC: B548ZZA Ultrasonography of Superior Vena Cava, Guidance (ICD-10-PCS; 2017-04-13)
DX: E11.69 Type 2 diabetes mellitus with other specified complication (principal); F05 Delirium due to known physiological condition; M86.8X7 Other osteomyelitis, ankle and foot; G92 Toxic encephalopathy; F03.90 Unspecified dementia, unspecified severity, without behavioral disturbance, psychotic disturbance, mood disturbance, and anxiety; I11.0 Hypertensive heart disease with heart failure; I50.22 Chronic systolic (congestive) heart failure; E11.42 Type 2 diabetes mellitus with diabetic polyneuropathy; Z79.84 Long term (current) use of oral hypoglycemic drugs; Z89.412 Acquired absence of left great toe; M48.56XD Collapsed vertebra, not elsewhere classified, lumbar region, subsequent encounter for fracture with routine healing; I48.2 Chronic atrial fibrillation; Z79.01 Long term (current) use of anticoagulants; I25.10 Atherosclerotic heart disease of native coronary artery without angina pectoris; Z95.5 Presence of coronary angioplasty implant and graft; M81.0 Age-related osteoporosis without current pathological fracture; Z96.642 Presence of left artificial hip joint; Z88.8 Allergy status to other drugs, medicaments and biological substances; Z82.49 Family history of ischemic heart disease and other diseases of the circulatory system; D64.9 Anemia, unspecified; F10.10 Alcohol abuse, uncomplicated; F17.210 Nicotine dependence, cigarettes, uncomplicated
CPT/HCPCS: 36415; 71010; 73720; 76937; 77001; 80048; 80076; 80202; 81003; 82553; 82947; 83036; 83605; 83735; 84484; 85025; 85027; 85610; 85652; 85730; 86140; 87040; 93005; 94760; 99285; A9577; C1751; J1642; J1650; J1815; J2543; J3370; J3475